=== PATIENT | male | born 1960 | race Caucasian/White ===

== ENCOUNTER 2021-06-29 15:22 | Emergency (ER) | payer OTHER, SELFPAY ==
[2021-06-29] VITALS (11 sets, daily range): BP systolic 135; BP diastolic 78; PULSE 76–102; RESP 16; TEMP 37.1; O2SAT 98
--- NOTE | 2021-06-29 15:30 | RT.EKG_ITS ---
APPROVED REPORT Exam: Resting ECG Reason for Exam: RIB PAIN Patient Location: E HR:91 bpm ECG Measurements Heart Rate 91 AXIS VT 167 P 37 QRSd 84 QRS 58 QT 360 T 66 QTc 443 Conclusion Sinus rhythm...normal P axis, V-rate 60- 99 Probable left atrial enlargement.
--- NOTE | 2021-06-29 15:45 | DI.CT_ITS ---
Exam(s) CT CHEST/ABD/PEL W EXAM: CT CHEST/ABD/PEL W CLINICAL HISTORY: trauma, L pain TECHNIQUE: Imaging Protocol: Axial computed tomography images with coronal and sagittal reformatted images were created and reviewed CONTRAST MATERIAL: Intravenous: Omnipaque 350 Contrast volume:100 mL Oral: No COMPARISON: No exams were available for comparison FINDINGS: CHEST: Tracheobronchial tree: Patent where visualized. Pulmonary parenchyma: No consolidation or dominant measurable mass. No architectural distortion. Mild dependent atelectasis. Visualized thyroid gland: Unremarkable. Mediastinum and Fransisca: No dominant adenopathy or fluid collection. Pleura: No effusion or pneumothorax. Heart: The heart is not dilated. Coronary artery calcification. No pericardial effusion. Aorta: Thoracic aorta non-dilated. Lymph nodes: Within normal limits. Soft tissues: Bilateral gynecomastia. Bones:Sternotomy wires. There is an acute nondisplaced fracture of the lateral aspect of the left 5t h rib. ABDOMEN: Liver: Normal density. No measurable mass. Portal, Superior Mesenteric, and Splenic Veins: Unremarkable. Gallbladder and Biliary Tract: No radiodense calculus or dilation. The gallbladder is contracted. Pancreas: Normal density, no abnormal calcifications or inflammatory process. Spleen: Normal. Adrenals: No masses seen. Kidneys: Normal size, contour and axis. No radiodense stones or obstructive uropathy. There are bilat eral simple renal cysts. No follow-up is recommended. Abdominal Aorta: Abdominal portion non-dilated. Mild atherosclerosis. Bowel: No obstruction or bowel wall thickening. No evidence of appendicitis. Peritoneal Cavity: No ascites, collection or mesenteric inflammatory response. No free air. Lymph Nodes: Within normal limits. Bones: Unremarkable. No acute fracture or subluxation. Soft Tissues: There is a fat containing umbilical hernia. PELVIS: Bladder: Symmetric distention. Mild asymmetric bladder wall thickening anteriorly of uncertain clini linda significance. Reproductive Organs: Unremarkable as visualized. Lymph Nodes: Within normal limits. Bones: Within normal limits. IMPRESSION: 1. No evidence of acute abdominal pelvic organ injury or fracture. 2. Nonspecific mild thickening of the anterior urinary bladder wall. Please correlate clinically. 3. Nondisplaced left 5th rib fracture. 4. No other acute pulmonary process. RADIATION DOSE DELIVERED: 1,660.33mGy.cm Total DLP DATA REPOSITORY: All CT scans at this facility are submitted to the National Radiology Data Registry (NRDR) Dose Index Registry (DIR) with the [employer] (A[employer]). RADIATION OPTIMIZATION: All CT scans at this facility use at least one of these dose optimization te chniques: automated exposure control; mA and/or kV adjustment per patient size (includes targeted exa ms where dose is matched to clinical indication); or iterative reconstruction.
--- NOTE | 2021-06-29 15:56 | ED.GENADUL_ITS ---
Discharge Plan Disposition Patient Disposition: HOME Condition: Improving Discharge Details Clinical Impression: Left rib fracture Primary Care Provider: Unknown,Unknown ED Provider: Shay Welch Home Meds and New Rx's Prescriptions: Continued aspirin 81 mg Capsule 81 mg PO DAILY RF: 0 atorvastatin 40 mg Tablet 40 mg PO DAILY RF: 0 clopidogrel 75 mg Tablet 75 mg PO DAILY RF: 0 lisinopril 2.5 mg Tablet 2.5 mg PO DAILY RF: 0 Discharge Instructions Instructions: Rib Fracture (ED) Additional Instructions: You have a left fifth rib fracture that is not displaced. Use a pillow to splint when coughing or laughing. Make sure you continue to take 10-20 deep breaths per hour as we discussed. Tylenol as needed for pain. Medical Decision Making 61-year-old male presents from [facility] where he has been staying and helping with renovations. On Monday he stepped off approximately 3 foot porch and fell to the ground landing on his left side. He did not have a loss of consciousness, but since that time he has had ongoing left chest and left upper quadrant achy discomfort that is worse with cough and movement. Rest ER in mild pain, afebrile, pulse 102 and oxygenating 98% on room air. He is tender overlying the left anterolateral chest and left quadrant of his abdomen. Differential diagnosis includes contusion versus rib fracture, pneumothorax, visceral injury. Patient IV access established, referred for laboratory testing and CT imaging. Labs are reassuring. CT reveals nondisplaced left fifth rib fracture, no other bony or visceral injury. Patient improved with acetaminophen. Discussed with him outpatient management. He is stable and appropriate for discharge at this time. HPI General Mode of arrival: ambulatory . Date/Time Provider Initiated Documentation: 06/29/21 15:25 . Limitations to Documentation: no limitations . Information obtained by: patient . History of Present Illness 61 year old M presents to the emergency department with the chief complaint of Left-sided pain after fall, described as moderate, Quality is described as dull and constant, and is localized to the chest. Patient reports no radiation. Patient started experiencing this day(s) and it has been constant. Rest improves symptom(s), Movement worsens symptoms . Patient notes denies headaches, shortness of breath and syncope. Patient did receive the following treatments prior to arrival, NSAID Related Data Home Medications Medication Instructions Recorded Confirmed aspirin 81 mg PO DAILY 06/29/21 06/29/21 atorvastatin 40 mg PO DAILY 06/29/21 06/29/21 clopidogrel 75 mg PO DAILY 06/29/21 06/29/21 lisinopril 2.5 mg PO DAILY 06/29/21 06/29/21 Allergies Allergy/AdvReac Type Severity Reaction Status Date / Time No Known Allergies Allergy Unverified 06/29/21 15:35 General Stated Complaint: Chest/Rib BRIANNE: 3 Review of Systems Narrative: Denies other injury. No head/neck/back injury or pain. No significant shortness of breath. 8 systems reviewed and otherwise negative [facility] Social History Smoking/Tobacco Use Status: Current every day Tobacco Type: cigarettes Smoking risk assessment performed?: Yes Alcohol Intake: former Drug use: Rarely Substance use type: marijuana Exam Narrative Exam Narrative: GEN: awake, alert, oriented 3. Pleasant, well groomed, interactive. HEAD: Normocephalic, atraumatic ENT: Mucous membranes moist, oropharynx unremarkable, External ear exam unremarkable EYES: PERRL, EOMI NECK: Full ROM, no CHARMAINE, no menigismus CHEST/RESP: Tender left anterolateral chest approximately T4-T6 region. No crepitus, clear to auscultation bilateral, no wheeze/rhonchi/rales CARDIOVASCULAR: RRR, no murmur, rub zhang. 2+ Rad pulse bilateral ABDOMEN: Soft, minimal left upper quadrant tenderness to palpation without rebound or guarding, no mass. +Bowel sounds EXT: Full ROM, no edema, no rash Neuro: Grossly normal neurologic exam, conversant, interactive. Psych: Speech fluent, thoughts congruent, affect normal Course Vital Signs Vital signs: Vital Signs Temperature 37.1 C 06/29/21 15:29 Pulse 102 H 06/29/21 15:29 Respiratory Rate 16 06/29/21 15:29 Blood Pressure 135/78 06/29/21 15:29 Pulse Oximetry 98 06/29/21 15:29 Temperature 37.1 C 06/29/21 15:29 Temperature Source Skin 06/29/21 15:29 Pulse 102 H 06/29/21 15:29 Respiratory Rate 16 06/29/21 15:29 Respiratory Effort Non-Labored 06/29/21 15:29 Blood Pressure 135/78 06/29/21 15:29 Blood Pressure Position Sitting 06/29/21 15:29 Pulse Oximetry 98 06/29/21 15:29 Oxygen Delivery Method Room Air 06/29/21 15:29 Oxygen Flow Rate 0 06/29/21 15:29 Pain Level 8 06/29/21 15:29 PAWSS Have you Been Recently Intoxicated or Drunk Within the Last 30 days?: No Have you Ever Experienced Previous Episodes of Alcohol Withdrawal?: No Have you ever Experienced Withdrawal Seizures?: No Have you ever Experienced Delirium Tremens(DT)s?: No Have you ever undergone Alcohol Rehabilitation Treatment (i.e, inpt ot outpatient treatment programs)?: No Have you ever Experienced Blackouts?: No Have you ever Combined Alcohol with other Downers within the last 90 days?: No Have you ever Combined Alcohol with any other Substance of Abuse during the last 90 days?: No Positive Blood Alcohol level on Presentation? [PCS.BAL]: No Evidence of Increased Autonomic Activity (i.e. HR>120, tremor, sweating, agitation, nausea)?: No Result: 0
[2021-06-29 16:06] LABS: HCT 42.3 % (40.0-50.0); HGB 14.3 g/dL (13.5-17.5); MCH 33.9 pg (27.0-33.0); MCHC 33.8 % (32.0-36.0); MCV 100.2 fL (80-95); MPV 9.3 fL (8.0-11.0); Platelet Count 254 10^3/uL (130-400); RBC 4.22 10^6/uL (4.36-5.78); RDW 12.5 % (11.8-14.1); RDW-SD 46.9 fL; WBC 8.34 10^3/uL (4.4-10.8)
[2021-06-29] MEDS: ACETAMINOPHEN 1,000 MG/100 ML BTL 400 MG IVPB (16:15)
[2021-06-29] MEDS: Normal Saline Flush 10 ML SYR IVP ×2 (16:15→17:02)
[2021-06-29 16:19] LABS: ALT 33 U/L (16-63); AST 18 U/L (15-37); Albumin 3.5 g/dL (3.4-5.0); Alkaline Phosphatase 87 U/L (46-116); Anion Gap 7.8 mmol/L (3-11); BUN 10 mg/dL (7-18); Bilirubin, Total 0.3 mg/dL (0.2-1.0); CO2 27.2 mmol/L (21.0-32.0); CREATININE 1.1 mg/dL (0.70-1.30); Calcium 8.9 mg/dL (8.5-10.1); Chloride 103 mmol/L (98-107); Glucose 141 mg/dL (74-106); Sodium 138 mmol/L (136-145); Total Protein 7.4 g/dL (6.4-8.2)
[2021-06-29] MEDS: Omnipaque 350 MG/ML 100 ML BTL IV (17:01)
[2021-06-29] MEDS: Normal Saline - Diluent 50 ML VIAL IV (17:02)
--- NOTE | 2021-06-29 17:48 | DI.VRAD_ITS ---
PROCEDURE INFORMATION: Exam: CT Chest With Contrast; Diagnostic Exam date and time: 06/29/2021 3:56 PM Age: 61 years old Clinical indication: Other: Trauma, L pain TECHNIQUE: Imaging protocol: Diagnostic computed tomography of the chest with contrast. 3D rendering (Not supervised by radiologist): MIP and/or 3D reconstructed images were created by the technologist. Radiation optimization: All CT scans at this facility use at least one of these dose optimization techniques: automated exposure control; mA and/or kV adjustment per patient size (includes targeted exams where dose is matched to clinical indication); or iterative reconstruction. Contrast material: OMNIPAQUE 350; Contrast volume: 100 ml; Contrast route: INTRAVENOUS (IV); COMPARISON: No relevant prior studies available. FINDINGS: Lungs: Minimal left lower lobe atelectasis. Pleural spaces: Unremarkable. No pneumothorax. No pleural effusion. Heart: Coronary artery calcifications/stents identified. Aorta: Unremarkable. No aortic aneurysm. Lymph nodes: Unremarkable. No enlarged lymph nodes. Bones/joints: Status post median sternotomy. There is a subtle fracture of the left 5th rib, nondisplaced. This is best appreciated series 8 images 283-299. Soft tissues: There is mild bilateral gynecomastia. IMPRESSION: Nondisplaced left 5th rib fracture. PROCEDURE INFORMATION: Exam: CT Abdomen And Pelvis With Contrast Exam date and time: 06/29/2021 3:56 PM Age: 61 years old Clinical indication: Other: Trauma, L pain TECHNIQUE: Imaging protocol: Computed tomography of the abdomen and pelvis with contrast. 3D rendering (Not supervised by radiologist): MIP and/or 3D reconstructed images were created by the technologist. Radiation optimization: All CT scans at this facility use at least one of these dose optimization techniques: automated exposure control; mA and/or kV adjustment per patient size (includes targeted exams where dose is matched to clinical indication); or iterative reconstruction. Contrast material: OMNIPAQUE 350; Contrast volume: 100 ml; Contrast route: INTRAVENOUS (IV); COMPARISON: No relevant prior studies available. FINDINGS: Liver: Normal. No mass. Gallbladder and bile ducts: Gallbladder contracted. Pancreas: Normal. No ductal dilation. Spleen: Normal. No splenomegaly. Adrenal glands: Normal. No mass. Kidneys and ureters: Bilateral renal cysts. Stomach and bowel: Unremarkable. No obstruction. No mucosal thickening. Appendix: No evidence of appendicitis. Intraperitoneal space: Unremarkable. No free air. No significant fluid collection. Vasculature: Mild atherosclerotic change present in the vasculature. Lymph nodes: Unremarkable. No enlarged lymph nodes. Urinary bladder: There is some mild bladder wall thickening anteriorly allowing for an appropriate degree of distention. Reproductive: Unremarkable as visualized. Bones/joints: There is mild irregularity superior endplate of L3, likely nonacute. Suspect prominent Schmorl's node. No definite fracture seen. Soft tissues: Small, fat containing periumbilical hernia. IMPRESSION: 1. No evidence for acute posttraumatic abnormality. 2. Mild anterior bladder wall thickening, uncertain significance. Dictated and Authenticated by: Fadumo Juarez MD. Ordering:GRABIEL Day MD
== END 2021-06-29 18:02 | disposition home or self-care (01) ==
PROVIDERS: Emergency Provider Emergency Medicine
DX: S22.32XA Fracture of one rib, left side, initial encounter for closed fracture (principal); W13.0XXA Fall from, out of or through balcony, initial encounter
CPT/HCPCS: 36415; 74177; 80053; 85027; 93005; 96365; 99285; 71260; 93010; 99284; J0131; J3490

== ENCOUNTER 2022-07-07 17:31 | Inpatient (IN) | payer MEDICAID, SELFPAY ==
[2022-07-07] VITALS (25 sets, daily range): BP systolic 114–168; BP diastolic 37–144; PULSE 86–106; RESP 8–29; TEMP 36.5–37.6; O2SAT 83–99
[2022-07-07] MEDS: diazePAM 10 MG/2 ML SYR 5 MG IVP (19:20)
[2022-07-07 19:25] LABS: Abs Immature Grans 0.03 10^3/uL (0.0-0.06); Absolute Basophil Count 0.03 10^3/uL (0.0-0.2); Absolute Eosinophil Count 0.13 10^3/uL (0.0-0.7); Absolute Lymphocyte Count 1.52 10^3/uL (1.2-3.4); Absolute Monocyte Count 0.64 10^3/uL (0.1-0.8); Absolute Neutrophil Count 6.84 10^3/uL (1.2-6.7); Basophils % 0.3; Eosinophils % 1.4; HCT 47.4 % (40.0-50.0); HGB 16.3 g/dL (13.5-17.5); Immature Grans % 0.3; Lymphocytes % 16.5; MCH 33.5 pg (27.0-33.0); MCHC 34.4 % (32.0-36.0); MCV 97 fL (80-95); MPV 9.2 fL (8.0-11.0); Neutrophils % 74.5; Platelet Count 266 10^3/uL (130-400); RBC 4.87 10^6/uL (4.36-5.78); RDW 12.8 % (11.8-14.1); WBC 9.19 10^3/uL (4.4-10.8)
[2022-07-07 19:41] LABS: ALT 30 U/L (16-63); AST 21 U/L (15-37); Albumin 3.6 g/dL (3.4-5.0); Alkaline Phosphatase 99 U/L (46-116); Anion Gap 3.9 mmol/L (3-11); BUN 10 mg/dL (7-18); Bilirubin, Total 0.3 mg/dL (0.2-1.0); CO2 29.1 mmol/L (21.0-32.0); CREATININE 1.1 mg/dL (0.70-1.30); Calcium 9.1 mg/dL (8.5-10.1); Chloride 103 mmol/L (98-107); Estimated GFR 76.37 (mL/min/1.73m2); Glucose 134 mg/dL (74-106); Lipase 87 U/L (73-393); Magnesium 2.3 mg/dL (1.8-2.4); Sodium 136 mmol/L (136-145); Total Protein 7.8 g/dL (6.4-8.2)
[2022-07-07] MEDS: diazePAM 10 MG/2 ML SYR IVP ×2 (19:44→20:53)
[2022-07-07] MEDS: diazePAM 10 MG/2 ML SYR (20:13)
[2022-07-07] MEDS: Normal Saline 1,000 ML 1000 ML IV (20:18)
--- NOTE | 2022-07-07 20:33 | ED.GENADUL_ITS ---
Discharge Plan Disposition Patient Disposition: [facility] INPATIENT Condition: Fair Discharge Details Clinical Impression: Alcohol withdrawal Admit Date/Time: 07/07/22 20:23 Admit Provider: Morgan Roy Attending Provider: Morgan Roy Primary Care Provider: Unknown,Unknown ED Provider: Angelique Swartz Discharge Data Discharge Date/Time-TO BE ENTERED AT DEPARTURE: 07/07/22 22:55 Medical Decision Making Patient has a CIWA of 18, secondary to opiate use history, patient was started on Valium and have better effect with Ativan, he received numerous doses for suspected alcohol withdrawal given tachycardia, agitation, and tremulousness Case discussed with Dr. Roy who admit patient for ICU withdrawal symptoms No seizure-like activity or hallucinations noted in the emergency department, maintaining airway Maintained on telemetry monitoring CIWA monitoring Stable electrolytes stable Medical Records Medical records reviewed: Yes I reviewed the patient's medical records. Lab Data Lab results reviewed: Yes I reviewed the patient's lab results. ECG Data Prior ECG tracings: available for review HPI General Date/Time Provider Initiated Documentation: 07/07/22 17:56 . HPI Narrative: This 62-year-old gentleman with history of opiate and alcohol abuse presents with reports of 24 hours of sobriety with tremulousness, myalgia, agitation he drinks approximately 1 pint of vodka daily in addition to 18 beers. He also uses approximately 100 mg of oxycodone daily. He has been searching for a detox in the outpatient setting but has been largely unsuccessful per patient. He denies any auditory or visual hallucinations. He denies any current paresthesias. He has a history of delirium tremens with withdrawal in the past. His last drink was approximately 24 hours prior to arrival. Denies any known falls or injuries. He denies any attempts to harm self. He denies any suicidal or homicidal ideation. He does feel depressed secondary to his illness and addiction per patient. Denies any chest pain, shortness of breath. Related Data Home Medications Medication Instructions Recorded Confirmed amoxicillin 500 mg capsule 1 cap PO TID 07/07/22 07/07/22 Allergies Allergy/AdvReac Type Severity Reaction Status Date / Time No Known Allergies Allergy Unverified 07/07/22 17:41 General Stated Complaint: ETOHWithdr BRIANNE: 3 Review of Systems All systems reviewed & are unremarkable except as noted in HPI and below PFSH All Active Problems (Updated 07/12/22 @ 09:05 by RINKU Hunter) Closed head injury (Acute) Scalp laceration (Acute) Fall (Acute) Delirium (Acute) Agitation (Acute) Alcohol withdrawal (Acute) Left rib fracture (Acute) Medical History (Updated 07/12/22 @ 09:05 by RINKU Hunter) Alcohol abuse Opioid abuse Surgical History (Updated 07/08/22 @ 17:29 by Morgan Roy) Status post cardiac catheterization Social History Smoking/Tobacco Use Status: Current every day Tobacco Type: cigarettes Smoking risk assessment performed?: Yes Alcohol Intake: current Alcohol Intake frequency: 3 or more drinks per day Alcohol type: beer and hard liquor Drug use: Daily Substance use type: marijuana Exam Const General: cooperative and well groomed Orientation: alert, oriented x3 and oriented to place HENMT Head: normal to inspection Mouth: oral mucosae normal Other: No intraoral trauma visualized Eyes Pupils: PERRL Resp Effort & Inspection: normal respiratory effort Auscultation: clear to auscultation bilaterally Cardio Rate: tachycardic Rhythm: regular rhythm GI Inspection: normal to inspection Skin General skin exam: no rashes or lesions noted Neuro General: patient alert and patient oriented x3 Cranial Nerves: CN's II-XI intact bilaterally and tongue midline Other: Tremulous Course Vital Signs Vital signs: Vital Signs Temperature 37.6 C 07/07/22 17:34 Pulse 105 H 07/07/22 17:34 Respiratory Rate 17 07/07/22 17:34 Blood Pressure 139/81 07/07/22 17:34 Pulse Oximetry 98 07/07/22 17:34 Temperature 37.6 C 07/07/22 17:34 Temperature Source Temporal Artery Scan 07/07/22 17:34 Pulse 105 H 07/07/22 17:34 Respiratory Rate 17 07/07/22 17:34 Respiratory Effort Short of Breath 07/07/22 17:39 Respiratory Pattern Normal 07/07/22 19:47 Blood Pressure 139/81 07/07/22 17:34 Blood Pressure Position Sitting 07/07/22 17:34 Pulse Oximetry 98 07/07/22 17:34 Oxygen Delivery Method Room Air 07/07/22 17:34 Oxygen Flow Rate 0 07/07/22 17:34 Pain Level 0 07/07/22 17:34 Lab/Test Results Lab/Test Results: Laboratory Tests Range/Units 07/07/22 07/07/22 19:15 19:15 WBC (4.4-10.8) 10^3/uL 9.19 RBC (4.36-5.78) 10^6/uL 4.87 Hgb (13.5-17.5) g/dL 16.3 Hct (40.0-50.0) % 47.4 MCV (80-95) fL 97 H MCH (27.0-33.0) pg 33.5 H MCHC (32.0-36.0) % 34.4 RDW (11.8-14.1) % 12.8 Plt Count (130-400) 10^3/uL 266 MPV (8.0-11.0) fL 9.2 Immature Gran % 0.3 Neutrophils % 74.5 Lymphocytes % 16.5 Monocytes % 7.0 Eosinophils % 1.4 Basophils % 0.3 Nucleated RBC % (0.0-0.3) % 0.0 Absolute Neutrophils (1.2-6.7) 10^3/uL 6.84 H Absolute Lymphocytes (1.2-3.4) 10^3/uL 1.52 Absolute Monocytes (0.1-0.8) 10^3/uL 0.64 Absolute Eosinophils (0.0-0.7) 10^3/uL 0.13 Absolute Basophils (0.0-0.2) 10^3/uL 0.03 Sodium (136-145) mmol/L 136 Potassium (3.5-5.1) mmol/L 4.0 Chloride (98-107) mmol/L 103 Carbon Dioxide (21.0-32.0) mmol/L 29.1 Anion Gap (3-11) mmol/L 3.9 BUN (7-18) mg/dL 10 Creatinine (0.70-1.30) mg/dL 1.1 Est GFR (CKD-EPI 2020) (mL/min/1.73m2) 76.37 Glucose (74-106) mg/dL 134 H Calcium (8.5-10.1) mg/dL 9.1 Magnesium (1.8-2.4) mg/dL 2.3 Total Bilirubin (0.2-1.0) mg/dL 0.3 AST (15-37) U/L 21 ALT (16-63) U/L 30 Alkaline Phosphatase (46-116) U/L 99 Total Protein (6.4-8.2) g/dL 7.8 Albumin (3.4-5.0) g/dL 3.6 Lipase (73-393) U/L 87 Critical Care Time Critical Care Time Attestation: 45 min secondary to acute alcohol withdrawal, iv benzodiazepines, hourly ciwa monitoringk, and admission to icu PAWSS Have you Been Recently Intoxicated or Drunk Within the Last 30 days?: Yes Have you Ever Experienced Previous Episodes of Alcohol Withdrawal?: Yes Have you ever Experienced Withdrawal Seizures?: Yes Have you ever Experienced Delirium Tremens(DT)s?: Yes Have you ever undergone Alcohol Rehabilitation Treatment (i.e, inpt ot outpatient treatment programs)?: Yes Have you ever Experienced Blackouts?: Yes Have you ever Combined Alcohol with other Downers within the last 90 days?: Yes Have you ever Combined Alcohol with any other Substance of Abuse during the last 90 days?: Yes Result: 8
--- NOTE | 2022-07-07 20:49 | W.PM.HP.N ---
Date of service: 07/07/22 Time of Service: 20:49 Assessment and Plan Assessment and plan (1) Alcohol withdrawal: Start date: 07/07/22 Status: Acute Assessment and plan: This is a 62-year-old gentleman with severe alcohol withdrawal with difficult to control agitation and possible physical harm to patient and staff. He appears to be slowly being controlled with IV benzodiazepines per protocol with IV site variably maintained but still present. He did seem to calm with ketamine which is short acting and continued assessment with use of benzodiazepines with Ativan being used should help with agitation and potential harm to self and others. Patient will be observed with sitter continuously and appears to be protecting his airway well. He will continue close monitoring and will have a sitter until improvement. He is potentially a candidate for intubation and mechanical ventilation with sedation if he reaches a threshold of Ativan use or appears to not be able to protect his airway. He is a full code. Prognosis is poor for patient to do well after this event with poor insight obviously most of his life. It is unclear why he wished to stop drinking at this time. He will need alcohol recovery either inpatient or aggressive outpatient once he is through withdrawals and is medically cleared. Critical care time at least 90 minutes of ICU level of care at patient's bedside and in ICU reviewing patient's response to medical therapy for agitation, reviewing labs and consulting with other providers as to care plan and options for safe sedation for severe agitation. High risk treatment with potential sudden change of respiratory or neurological status and chance of acute decompensation ongoing during critical care time. (2) Delirium: Start date: 07/07/22 Status: Acute Assessment and plan: [facility] protocol with Ativan as above with one-time use of ketamine for severe agitation with patient physically threatening to staff with severe agitation and physically being large enough to do harm to himself or others. We will try to avoid mechanical restraints because of increased chance of harm. Watch airway closely as patient is sedated. Patient should have continuous sitter. (3) Agitation: Start date: 07/07/22 Status: Acute Assessment and plan: Severe with patient potentially doing harm to himself and others with medical management as above. Watch for oversedation. Will avoid phenobarbital since benzodiazepines are being used and because of opioid abuse. (4) Opioid abuse: Assessment and plan: Chronic with patient reportedly taking 100 mg of oxycodone daily along with his heavy alcohol use. Clonidine will be ordered as needed for opioid withdrawal if apparent as patient goes through alcohol withdrawal. (5) Alcohol abuse: Assessment and plan: Chronic with patient drinking since the age of 12 and a heavy drinker daily. He does have a history reported by ED physician of previous alcohol withdrawal and alcohol withdrawal seizures. History of Present Illness History of Present Illness Chief Complaint: Alcohol withdrawal and delirium Narrative: This is a 62-year-old gentleman who recently moved up from another state to live with his aunt who is a retired worker from this hospital. Past medical history was obtained in the ED verbally with no available documentation at the time I saw the patient. The patient was unable to offer history being delirious with his alcohol withdrawal and at the time I saw him he had already had 25+ milligrams of iv Valium and several doses of 3 mg iv Ativan for severe alcohol withdrawal with CIWA scores near or over 20. Because of opioid abuse taking 100 mg of oxycodone daily which he would buy from [facility] to [place], the patient was not initiated on phenobarbital for his aggitation. He was reported to have been drinking a quart of hard liquor and several beers daily since he was age of 12. He came to [place] to live with his aunt and was wanting to stop drinking. He was unable to offer further history and was very agitated attempting to stand becoming very physical pushing staff and was at risk of harming himself. He was on the severe alcohol withdrawal protocol with IV Ativan and because of his severe agitation ketamine was entertained and reviewed as to dosing for severe agitation with delirium. Anesthesia had been called but had not been contacted with review of data indicating the short acting IV use of ketamine may be helpful in this situation. The patient was given continued Ativan dosing and ketamine was given late in the morning before end of shift with good effect and patient sleeping and not being as agitated with a bed sitter at his door. He was very defiant before this and very physical as stated. No further history available for review as stated though it was stated that the patient had previous cardiac catheterization and possible stenting with no records of this procedure available. Patient is a full code. He apparently does smoke tobacco. Patient did have visit to the ED earlier this month with a nondisplaced left rib fracture diagnosed at that time. He Vincentley has been following with his alcohol use. Review of Systems Narrative: 13 point review of systems otherwise unobtainable with patient's delirium. [facility] All Active Problems (Updated 07/08/22 @ 17:29 by Morgan Roy) Closed head injury (Acute) Scalp laceration (Acute) Fall (Acute) Delirium (Acute) Agitation (Acute) Alcohol withdrawal (Acute) Left rib fracture (Acute) Medical History (Updated 07/08/22 @ 17:29 by Morgan Roy) Alcohol abuse Opioid abuse Surgical History (Updated 07/08/22 @ 17:29 by Morgan Roy) Status post cardiac catheterization Social History Smoking/Tobacco Use Status: Current every day Tobacco Type: cigarettes Smoking risk assessment performed?: Yes Alcohol Intake: current Alcohol Intake frequency: 3 or more drinks per day Alcohol type: beer and hard liquor Drug use: Daily Substance use type: marijuana Meds Allergies and Home Medications Allergies Allergy/AdvReac Type Severity Reaction Status Date / Time No Known Allergies Allergy Unverified 07/07/22 17:41 Home Medications Medication Instructions Recorded Confirmed Type amoxicillin 500 mg capsule 1 cap PO TID 07/07/22 07/07/22 History Exam Narrative Exam Narrative: General: Patient appears older than stated age, obese and appears puffy over face and most of body with Dr. Lambert skin, slurred speech and attempting to sit up but very unstable and at times almost falling and when helped pushes back claiming that he is being shoved as if wanting to pick a fight. He is also very muscular. He is not oriented to person or time and not to purpose but may know that he is in the hospital. HEENT: Normocephalic with coarsened facial features, eyes with pupils equal and react light symmetrically, extraocular movement tact and sclera anicteric. There is no nystagmus. Oropharynx with dry mucosa. Neck: Supple without JVD. Back: Stooped posture without CVA tenderness. Lungs: Bronchovesicular breath sounds diffusely with no expiratory wheeze but occasional rhonchi. No focalizing rales. Heart: Tachycardic rate at times with normal rhythm. No appreciable murmur or gallop. Chest: No obvious sternal scar. Abdomen: Obese contour, soft but not cooperating with exam. Bowel sounds positive all quadrants. Genitalia/rectal: Exam deferred. Extremities: Without clubbing, cyanosis or pitting edema with diffuse nonpitting edema over upper and lower extremities. Peripheral pulses intact. Skin: Darkly tanned, warm and dry with thick skin. Rough texture. Neuro: Cranial nerves II through XII appear to be grossly intact without nystagmus. No focal motor deficits but patient very uncoordinated with positive Romberg and repeated attempts to stand and not following direction. He is delirious but not having obvious hallucinations. Psych: Delirious and easily agitated with defiance. No abnormal thought processes other than persistence and his demands for things such as to walk down the hallway to the bathroom or to go to the kitchen indicating that he does not know that he is in the hospital. Memory not testable. Results Labs Result diagrams: 07/07/22 19:15 07/07/22 19:15 Labs: Laboratory Results - last 24 hr 07/07/22 07/07/22 19:15 19:15 WBC 9.19 RBC 4.87 Hgb 16.3 Hct 47.4 MCV 97 H MCH 33.5 H MCHC 34.4 RDW 12.8 Plt Count 266 MPV 9.2 Immature Gran % 0.3 Neutrophils % 74.5 Lymphocytes % 16.5 Monocytes % 7.0 Eosinophils % 1.4 Basophils % 0.3 Nucleated RBC % 0.0 Absolute Neutrophils 6.84 H Absolute Lymphocytes 1.52 Absolute Monocytes 0.64 Absolute Eosinophils 0.13 Absolute Basophils 0.03 Sodium 136 Potassium 4.0 Chloride 103 Carbon Dioxide 29.1 Anion Gap 3.9 BUN 10 Creatinine 1.1 Est GFR (CKD-EPI 2020) 76.37 Glucose 134 H Calcium 9.1 Magnesium 2.3 Total Bilirubin 0.3 AST 21 ALT 30 Alkaline Phosphatase 99 Total Protein 7.8 Albumin 3.6 Lipase 87 Last Vital Signs Temp 37.6 C 07/07/22 17:34 Pulse 97 H 07/07/22 20:32 Resp 8 L 07/07/22 20:40 BP 157/81 H 07/07/22 20:32 Pulse Ox 99 07/07/22 20:40 PAWSS Have you Been Recently Intoxicated or Drunk Within the Last 30 days?: Yes Have you Ever Experienced Previous Episodes of Alcohol Withdrawal?: Yes Have you ever Experienced Withdrawal Seizures?: Yes Have you ever Experienced Delirium Tremens(DT)s?: Yes Have you ever undergone Alcohol Rehabilitation Treatment (i.e, inpt ot outpatient treatment programs)?: Yes Have you ever Experienced Blackouts?: Yes Have you ever Combined Alcohol with other Downers within the last 90 days?: Yes Have you ever Combined Alcohol with any other Substance of Abuse during the last 90 days?: Yes Result: 8
[2022-07-07 21:03] LABS: Source Nasal/Nares
[2022-07-07] MEDS: LORazepam 2 MG/ML VIAL 3 MG IVP (21:13)
[2022-07-07 21:34] LABS: COVID-19 PCR Negative (Negative)
[2022-07-07] MEDS: LORazepam 2 MG/ML VIAL IVP (22:47)
[2022-07-08] VITALS (55 sets, daily range): BP systolic 133–178; BP diastolic 81–116; PULSE 88–106; RESP 10–33; TEMP 36.7–37.5; O2SAT 92–98
--- NOTE | 2022-07-08 | DI.RAD_ITS ---
Exam(s) XR HUMERUS LT EXAM: XR HUMERUS LT CLINICAL HISTORY: fall. TECHNIQUE: 2D digital imaging was performed of the left humerus. Two images were obtained. AP and lateral views were obtained. COMPARISON: No exams were available for comparison FINDINGS: BONES: No acute fracture is present. No bony destructive lesion is seen. Visualized portion of elbow and shoulder joints are unremarkable. SOFT TISSUE: Normal. IMPRESSION: Unremarkable radiographs of the left humerus. DATA REPOSITORY: RADIATION DOSE DELIVERED:
--- NOTE | 2022-07-08 | DI.CT_ITS ---
Exam(s) CT HEAD CERVICAL SPINE WO EXAM: CT HEAD CERVICAL SPINE WO CLINICAL HISTORY: s/p fall. TECHNIQUE: Imaging Protocol: Axial computed tomography images with coronal and sagittal reformatted images were created and reviewed COMPARISON: No exams were available for comparison FINDINGS: CT Head: Ventricles and Extra axial spaces: Normal in size and morphology for the patient's age. Hemorrhage: None. Cerebral parenchyma: Normal. Midline shift: None. Brainstem/Cerebellum: Normal. Calvarium: Normal. Visualized Paranasal sinuses/Mastoids: There is mild mucosal thickening seen in the right maxillary s inus. The remaining visualized paranasal sinuses and mastoid air cells are clear. Soft Tissues: Unremarkable. CT Cervical Spine: Bones: No acute fracture or subluxation. Cervical spondylosis is present. Soft Tissues: Unremarkable. Lung Apices: Clear. IMPRESSION: 1. No acute intracranial process. 2. No acute fracture or subluxation in the cervical spine. RADIATION DOSE DELIVERED: 1,422.26mGy.cm Total DLP DATA REPOSITORY: All CT scans at this facility are submitted to the National Radiology Data Registry (NRDR) Dose Index Registry (DIR) with the [employer] (ACR). RADIATION OPTIMIZATION: All CT scans at this facility use at least one of these dose optimization te chniques: automated exposure control; mA and/or kV adjustment per patient size (includes targeted exa ms where dose is matched to clinical indication); or iterative reconstruction.
[2022-07-08] MEDS: LORazepam 2 MG/ML VIAL IVP ×2 (00:10→02:37)
[2022-07-08 02:36] LABS: Bilirubin Negative (Negative); Blood Negative (Negative); Clarity Clear (Clear); Glucose Negative (Negative); Ketones Negative (Negative); Leukocyte Esterase Negative (Negative); Nitrite Negative (Negative); Urobilinogen 0.2 EU/dL (Up TO 0.2); pH 7.5 (5-8)
[2022-07-08] MEDS: Normal Saline Flush 10 ML SYR IVP (02:38)
[2022-07-08 02:51] LABS: *AMPHETAMINES SCREEN URINE Negative (Negative); *BARBITURATES SCREEN URINE Negative (Negative); *BENZODIAZEPINES SCREEN URINE Positive (Negative); Cannabinoids THC Positive (Negative); Cocaine Screen,Urine Negative (Negative); METHADONE URINE SCREEN Negative (Negative); OPIATES URINE SCREEN Negative (Negative)
[2022-07-08 02:55] LABS: Tricyclic Antidepressants Negative (Negative)
[2022-07-08] MEDS: diazePAM 10 MG/2 ML SYR 5 MG IVP (03:12)
[2022-07-08] MEDS: Ketamine 50 MG/5 ML SYRINGE 100 MG IVP (05:00)
--- NOTE | 2022-07-08 08:46 | W.PULMCC ---
General Date of Service Date of service: 07/08/22 Time of Service: 08:47 Reason for Admission to ICU: EtOH withdrawal Assessment and Plan Assessment and plan (1) Alcohol withdrawal: Status: Acute (2) Agitation: Status: Acute (3) Delirium: Status: Acute (4) Fall: Status: Acute (5) Scalp laceration: Status: Acute Assessment and plan: This is a 62 yo man admitted for alcohol withdrawal on a benzodiazepine treatment pathway. He remained agitated and thought to be actively withdrawing despite receiving significant doses of benzo's so was administered high dose ketamine (100mg). Unfortunately he got out of bed and had a fall this morning, hitting his head on the floor hard enough to cause a right frontal scalp laceration. There was prn ketamine ordered, which is never appropriate and so this was discontinued. He is getting a banana bag until he is able to take PO effectively. Recommendations Pulmonary: No acute concerns Cardiac: No acute concerns Renal: No acute concerns I&O: Intake & Output 07/05/22 07/06/22 07/07/22 07/08/22 23:59 23:59 23:59 23:59 Intake Total 1010 / 1010 Output Total 850 / 850 Balance 1010 / 1010 -840 / -840 Weight 108.2 kg 108.2 kg Daily Fluid Goal:: even GI Nutrition: Nutrition - banana bag while unable to safely take PO Date of Last Bowel Movement: 07/07/22 Infectious Disease: No acute concerns Hematologic: No acute concerns Neurologic: EtOH withdrawal/Agitation - s/p ketamine - discontinue any prn ketamine orders - on benzodiazepine pathway - advise against giving phenobarb since he has received alot of benzo's - on thiamine, folate, MVI - clonidine prn - if needed can consider starting Librium - if agitated/safety concerns, recommend starting Precedex Fall - s/p CT head and C-spine - both are clear and C-collar can be removed - f/u humerus and shoulder xray reads - recommend sitter - recommend bed alarm Endocrine: No acute cocnerns Lines: PIV Prophylaxis: Lovenox Code Status: Resuscitation Status Full Code Subjective Critical and life-threatening events over the past 24 hours: This is a 62 yo man admitted to the ICU for EtOH withdrawal. He was started on the benzodiazepine protocol as he received a significant amount in the ED prior to ICU admission. In total he received 30mg Valium and 11mg Ativan. I am unclear on the situation as the H&P is not completed, but he was also given a total of 100mg Ketamine for agitation. The patient was somnolent after this and difficult to arouse but was protecting airway. He likely experienced re-emergence this morning and got out of bed and subsequently fell, hitting his head on the ground resulting in a scalp laceration. I was near by so responded and held his C-spine stable until a collar could be put on him. Once the collar was in place a backboard was placed under him and he was lifted into a stretcher. He then had a stat head and c-spine CT, both of which were negative. He also had a left shoulder and humurus xray given the fall, read pending but no major fractures that I can see. He was able to open eyes to voice command and hum answers but was refusing to talk. Exam Narrative Exam Narrative: Gen: NAD, normal respiratory effort, obese HENT: PERRL Chest: No respiratory distress, normal appearance of chest, clear to auscultation bilaterally, no crackles or wheezes, normal inspiratory effort Heart: regular rate and rhythym, no murmurs, rubs or gallops Abdomen: Non-distended, soft, non tender Extremities: No clubbing, edema, cyanosis, rashes Neuro: non focal Psych: somnolent Most Recent VS/Results Last Vital Signs Temp 36.5 C 07/07/22 23:15 Pulse 97 H 07/08/22 05:35 Resp 22 07/08/22 06:00 BP 171/90 H 07/08/22 05:35 Pulse Ox 93 07/08/22 00:21 Laboratory Results - last 24 hr 07/07/22 07/07/22 07/07/22 19:15 19:15 21:00 WBC 9.19 RBC 4.87 Hgb 16.3 Hct 47.4 MCV 97 H MCH 33.5 H MCHC 34.4 RDW 12.8 Plt Count 266 MPV 9.2 Immature Gran % 0.3 Neutrophils % 74.5 Lymphocytes % 16.5 Monocytes % 7.0 Eosinophils % 1.4 Basophils % 0.3 Nucleated RBC % 0.0 Absolute Neutrophils 6.84 H Absolute Lymphocytes 1.52 Absolute Monocytes 0.64 Absolute Eosinophils 0.13 Absolute Basophils 0.03 Sodium 136 Potassium 4.0 Chloride 103 Carbon Dioxide 29.1 Anion Gap 3.9 BUN 10 Creatinine 1.1 Est GFR (CKD-EPI 2020) 76.37 Glucose 134 H Calcium 9.1 Magnesium 2.3 Total Bilirubin 0.3 AST 21 ALT 30 Alkaline Phosphatase 99 Total Protein 7.8 Albumin 3.6 Lipase 87 Urine Color Urine Clarity Urine pH Ur Specific [place] Urine Protein Urine Ketones Urine Blood Urine Nitrite Urine Bilirubin Urine Urobilinogen Ur Leukocyte Esterase Urine Glucose Urine Opiates Screen Urine Methadone Screen Ur Barbiturates Screen Ur Tricyclics Screen Ur Amphetamines Screen U Benzodiazepines Scrn Urine Cocaine Screen Ur THC Screen COVID-19 Source Nasal/Nares SARS-CoV-2 (PCR) Negative 07/08/22 07/08/22 02:10 02:10 WBC RBC Hgb Hct MCV MCH MCHC RDW Plt Count MPV Immature Gran % Neutrophils % Lymphocytes % Monocytes % Eosinophils % Basophils % Nucleated RBC % Absolute Neutrophils Absolute Lymphocytes Absolute Monocytes Absolute Eosinophils Absolute Basophils Sodium Potassium Chloride Carbon Dioxide Anion Gap BUN Creatinine Est GFR (CKD-EPI 2020) Glucose Calcium Magnesium Total Bilirubin AST ALT Alkaline Phosphatase Total Protein Albumin Lipase Urine Color Yellow Urine Clarity Clear Urine pH 7.5 Ur Specific [place] 1.020 Urine Protein Negative Urine Ketones Negative Urine Blood Negative Urine Nitrite Negative Urine Bilirubin Negative Urine Urobilinogen 0.2 Ur Leukocyte Esterase Negative Urine Glucose Negative Urine Opiates Screen Negative Urine Methadone Screen Negative Ur Barbiturates Screen Negative Ur Tricyclics Screen Negative Ur Amphetamines Screen Negative U Benzodiazepines Scrn Positive A Urine Cocaine Screen Negative Ur THC Screen Positive A COVID-19 Source SARS-CoV-2 (PCR) Review of Systems Unobtainable due to mental status Time spent with patient Time spent in Critical Care: 50 Time spent in Critical care included: Coordination of care, Chart review, Documenting critically ill care, Time at immediate bedside and Discussing critically ill care with other medical staff
--- NOTE | 2022-07-08 09:16 | DI.RAD_ITS ---
Exam(s) XR SHOULDER LT COMPLETE 2+V EXAM: XR SHOULDER LT COMPLETE 2+V CLINICAL HISTORY: s/p fall. TECHNIQUE: 2D digital imaging was performed of the left shoulder. Five images were obtained. AP, G rashey, Y-view and axillary views were obtained. COMPARISON: No exams were available for comparison FINDINGS: BONES: No acute fracture is present. No bony destructive lesion is seen. JOINTS: No dislocation present. Degenerative changes are seen at the AC joint. SOFT TISSUE: Normal. IMPRESSION: No acute fracture or dislocation. DATA REPOSITORY: RADIATION DOSE DELIVERED:
--- NOTE | 2022-07-08 09:24 | NUR.NOTE ---
At approximately 08:25 patient falls onto the floor after walking out of his room in room 222. Neck collar is applied, MDs are present. Patient lifted onto strecher by 6 people and taken to radiology for CT scan of neck and x-rays of left shoulder and elbow.Nursing Note:
--- NOTE | 2022-07-08 09:26 | NUR.NOTE ---
Patient returns to unit with ASSISTANCE SPECIALIST and CRM FUNCTIONAL ANALYST transporting patient on tele. Patient lethargic but appropriate in his speech. Patient rolls from stretcher to bed on his own and is now a one to one observation patient being observed by CRM FUNCTIONAL ANALYST.Nursing Note:
--- NOTE | 2022-07-08 09:39 | NUR.NOTE ---
At approximately 0825, this play writer was helping a different patient when I heard a loud noise. Patient found on floor with multiple staff members, including MDs, Respiratory therapist there to assist. Staff emergency called at this time. Patient placed in C-spine collar and transferred from floor to stretcher. This play writer and RN Boris Hartman took patient down for CT and Xrays with no complications. Nursing Note:
--- NOTE | 2022-07-08 09:48 | NUR.NOTE ---
Once back from CT and Xray tests, this administrative underwriter is sitting with patient for safety as he can be very restless and confused. C-collar removed at 0940 as he was trying to take it off and radiology reports came back and RN said it was okay to remove. Nursing Note:
--- NOTE | 2022-07-08 09:50 | INITIAL_ITS ---
- If Service Date Differs Date of service: 07/08/22 Time of Service: 09:51 Care Management Initial Assess REASON FOR HOSPITALIZATION:: left rib fracture. alcohol withdrawal PAST MEDICAL HISTORY/PAST SURGICAL HISTORY:: alcohol withdrawal PREVIOUS FUNCTIONAL STATUS/SOCIAL/FAMILY SUPPORTS:: Will lives in [place]. His Aunt Maya Murphy is his next of kin and support person. CURRENT FUNCTIONAL STATUS:: Will was medicated last night for symptoms of withdrawal and was asleep this morning when CM came to meet with him. When he woke up he decided that he wanted to leave AMA. A call was placed to his aunt Maya but she was unable to dissuade him. She offered to come and transport Will home and he was agreeable. ADVANCE DIRECTIVES:: none on file Has patient been provided with info about the portal/API?: Yes Did the patient sign up for the portal?: No CODE STATUS:: Full Code INSURANCE COVERAGE / FINANCIAL ISSUES:: working with Malena Shoshana from [employer] to obtain Medicaid CURRENT HOME/COMMUNITY SERVICES/EQUIPMENT:: none PRIMARY CARE PHYSICIAN:: none currently POTENTIAL DISCHARGE NEEDS:: follow up with assigned PCP and plan of care PATIENT/FAMILY EDUCATION NEEDS:: Review of discharge instructions, follow up plan, limitations, activity, substance use resources, Ask Me Three TRANSPORTATION:: vial private vehicle with family PLAN:: Will was in the ICU being closely monitored and treated for acute alcohol withdrawal. He had been heavily medicated for withdrawal symptoms last night and was sleepy this morning. When he woke up he announced he intended to leave AMA which he did around 2:30 pm. His Aunt Maya provided transport via private vehicle.
[2022-07-08] MEDS: MULTIVITAMIN 10 ML, THIAMINE 100 MG, FOLIC ACID 1 MG in DEXTROSE 5%-0.45% SALINE 1,000 ML 42 ML IV (10:46)
--- NOTE | 2022-07-08 10:53 | NUR.NOTE ---
`Patient lethargic and wakes up to notice pharmacy picking tech trying to draw his blood and is taught why a blood draw is necessary.Nursing Note:
[2022-07-08] MEDS: Enoxaparin 40 MG/0.4 ML SYR SC (10:56)
--- NOTE | 2022-07-08 11:28 | NUR.NOTE ---
Pt voided, confused, in time and space, bed alarm on
--- NOTE | 2022-07-08 12:26 | NUR.NOTE ---
Patient sleeping peacefully.Nursing Note:
--- NOTE | 2022-07-08 12:31 | NUR.NOTE ---
Patient woke briefly asking things like, What meds did you guys give me? What happened here? Why am I here? This casualty underwriter got RN to talk to patient. By the time RN entered room, patient was back to sleep. Nursing Note:
--- NOTE | 2022-07-08 12:52 | NUR.NOTE ---
Patient woke up and was asking things like, Why was my neighbor being a jerk to me yesterday? Did I make a fool out of myself? What happened? Informed patient that I was unaware of events that took place yesterday and let him know of his fall this morning but that nothing was broken and that he had a small cut on his forehead. At this time, patient is requesting food. Patient currently has an NPO order per MD. This automobile and property underwriter called MD to let her know about these events and patients request for food. MD said she would change diet order to clear liquids RN also notified that he is back. Nursing Note:
--- NOTE | 2022-07-08 13:25 | NUR.NOTE ---
Patient much more awake and aware of his surroundings. Tried to ask the patient if he knew where he was. His response was, Same one I was in yesterday. When asked if he knew what year it is he responded with, Yeah yeah yeah I know that bull shit you don't have to ask me that. Patient requesting to speak with MD, so MD was text paged. Nursing Note:
--- NOTE | 2022-07-08 13:52 | NUR.NOTE ---
Patient getting agitated and taking off wires and blood pressure cuff. States, Im fucking leaving. RN and MD notified. Nursing Note:
--- NOTE | 2022-07-08 14:06 | NUTRITION ---
Maya Murphy (Patients Aunt)
--- NOTE | 2022-07-08 14:26 | NUR.NOTE ---
RN calls patient's aunt to come to hospital to collect patient who is going to sign himself out of the hospital AMA. IV is dc'd by RN. Gauze applied to old IV site with tape securing same.Nursing Note:
--- NOTE | 2022-07-08 14:31 | NUR.NOTE ---
Patient signs himself out AMA. Patient placed in wheelchair and is taken to lobby where he will wait for his aunt to collect him in 30 minutes. RN confirms same after speaking with aunt telephonically. STEEL FINISHER will remain with patient in lobby for safety.Nursing Note:
--- NOTE | 2022-07-08 14:32 | W.PM.DS.N ---
Date of service: 07/08/22 Time of Service: 14:32 DS: Diagnosis Discharge Diagnosis (1) Alcohol withdrawal: Status: Acute (2) Agitation: Status: Acute (3) Delirium: Status: Acute (4) Fall: Status: Acute (5) Scalp laceration: Status: Acute (6) Closed head injury: Status: Acute (7) Alcohol abuse: Discharge Plan Disposition Patient Disposition: AGAINST MEDICAL ADVICE Condition: Fair Discharge Details Reason For Visit: Alcohol Withdrawel Admit Date/Time: 07/07/22 20:23 Admit Provider: Morgan Roy Attending Provider: Morgan Roy Primary Care Provider: Unknown,Unknown Hospital Course Hospital Course: Mr Murphy is a 62 year old male with PMHx of CAD, EtOH abuse, and opioid dependence on oxycodone who was a patient in [facility] ICU under the hospitalist service from 07/07/22 until 07/08/22 for alcohol withdrawal accompanied by agitation. The patient ended up receiving diazepam and ativan in the ED followed by ketamine for his agitation. These measures did help relieve his symptoms. However, he sustained an unwitnessed fall on the morning of 07/08/22 without loss of consciousness. He fell face forward lacerating his scalp on the right and not requiring sutures. Staff emergency was called. Vital signs were stable. He had a negative CT head and c-spine. He rested during the morning, not requiring respiratory support, and woke up by the afternoon, tolerating a clear liquid diet and demonstrating ability to mentate, consistently requesting to leave the hospital, even if it were AMA. He verbalized understanding of the possible complications of undertreated alcohol withdrawal including but not limited to seizures and and chose to leave AMA regardless. No new prescriptions were given. Care for patient as well as completion of his discharge summary on day the patient left AMA took 45 minutes. Home Meds and New Rx's Prescriptions: No Action amoxicillin 500 mg capsule 1 cap PO TID Discharge Instructions Instructions: Alcohol Withdrawal (DC) Additional Instructions: You should return to the hospital with any worsening of your alcohol withdrawal symptoms. Referrals: Unknown,Unknown [Primary Care Provider] - Activity:: Activity as Tolerated Equipment/Supplies:: No Equipment Needed Diet:: As Tolerated Discharge Orders Discharge Orders: Discharge Order (Routine); Ordered 07/08/22 Ordered By: Penny A Juanita Discharge Data Discharge Date/Time-TO BE ENTERED AT DEPARTURE: 07/08/22 14:37 Discharge Comment: Patient signed out AMA. Aunt to collect patient. DS: Summary Time Spent with Patient providing and/or coordinating discharge services: Greater than 30 minutes Status at Discharge Functional status at discharge: independent ambulation Overall status at discharge: patient is not back to baseline Mental Status: other Speech and Movement: speech and movement normal Mood: anxious mood and other Affect: anxious affect Exam Narrative Exam Narrative: General: Obese male who is awake and requesting to leave AMA HEENT: EOMI, MMM Heart: RRR, no m/r/g Lungs: CTAB/nonlabored breathing Abdomen: soft, nontender, nondistended Extremities: no edema BLEs Psych Mental Status: other Speech and Movement: speech and movement normal Mood: anxious mood and other Affect: anxious affect DS: Data Vitals/I&O Vitals and I&O: Vital Signs Temperature 37.5 C 07/08/22 12:16 Temperature Source Temporal Artery Scan 07/08/22 12:16 Pulse 101 H 07/08/22 12:16 Pulse 99 H 07/08/22 11:22 Respiratory Rate 27 H 07/08/22 12:16 Respiratory Effort 07/08/22 12:16 Respiratory Depth Normal 07/08/22 12:16 Respiratory Pattern Normal 07/08/22 12:16 Blood Pressure 135/84 07/08/22 12:16 Blood Pressure Mean 101 07/08/22 12:16 Blood Pressure Position Right Lateral 07/08/22 12:16 Pulse Oximetry 93 07/08/22 12:16 Oxygen Delivery Method Room Air 07/08/22 12:16 Oxygen Flow Rate 0 07/08/22 12:16 Pain Level 2 07/08/22 12:16 Intake & Output 07/07/22 07/08/22 07/08/22 23:59 11:59 23:59 Intake Total 1010 / 1010 10 / 310 300 / 310 Output Total 1250 / 1250 Balance 1010 / 1010 -1240 / -940 300 / -940 Weight 108.2 kg 108.2 kg Intake: IV 1010 / 1010 10 / 10 Oral 300 / 300 Output: Urine 1250 / 1250 Other: Urine Color Yellow Urine Appearance Clear Urine Odor Normal Voiding Methods Urinal Data Completed and Pending Completed studies during hospitalization [Text1]: CT head/c-spine w/o contrast: 1. No acute intracranial process.? 2. No acute fracture or subluxation in the cervical spine. XR L humerus: Unremarkable radiographs of the left humerus. XR L shoulder: No acute fracture or dislocation.? Labs on day of discharge: Labs from last 24 hours 07/08/22 07/08/22 07/08/22 05:35 02:10 02:10 WBC RBC Hgb Hct MCV MCH MCHC RDW Plt Count MPV Immature Gran % Neutrophils % Lymphocytes % Monocytes % Eosinophils % Basophils % Nucleated RBC % Absolute Neutrophils Absolute Lymphocytes Absolute Monocytes Absolute Eosinophils Absolute Basophils PT INR Sodium Pending Potassium Pending Chloride Pending Carbon Dioxide Pending Anion Gap Pending BUN Pending Creatinine Pending Est GFR (CKD-EPI 2020) Pending Glucose Pending Calcium Pending Phosphorus Pending Magnesium Pending Total Bilirubin Pending Conjugated Bilirubin Pending AST Pending ALT Pending Alkaline Phosphatase Pending Total Protein Pending Albumin Pending Lipase Urine Color Yellow Urine Clarity Clear Urine pH 7.5 Ur Specific [place] 1.020 Urine Protein Negative Urine Ketones Negative Urine Blood Negative Urine Nitrite Negative Urine Bilirubin Negative Urine Urobilinogen 0.2 Ur Leukocyte Esterase Negative Urine Glucose Negative Urine Opiates Screen Negative Urine Methadone Screen Negative Ur Barbiturates Screen Negative Ur Tricyclics Screen Negative Ur Amphetamines Screen Negative U Benzodiazepines Scrn Positive A Urine Cocaine Screen Negative Ur THC Screen Positive A COVID-19 Source SARS-CoV-2 (PCR) 07/07/22 07/07/22 07/07/22 21:00 20:47 19:15 WBC 9.19 RBC 4.87 Hgb 16.3 Hct 47.4 MCV 97 H MCH 33.5 H MCHC 34.4 RDW 12.8 Plt Count 266 MPV 9.2 Immature Gran % 0.3 Neutrophils % 74.5 Lymphocytes % 16.5 Monocytes % 7.0 Eosinophils % 1.4 Basophils % 0.3 Nucleated RBC % 0.0 Absolute Neutrophils 6.84 H Absolute Lymphocytes 1.52 Absolute Monocytes 0.64 Absolute Eosinophils 0.13 Absolute Basophils 0.03 PT Pending INR Pending Sodium Potassium Chloride Carbon Dioxide Anion Gap BUN Creatinine Est GFR (CKD-EPI 2020) Glucose Calcium Phosphorus Magnesium Total Bilirubin Conjugated Bilirubin AST ALT Alkaline Phosphatase Total Protein Albumin Lipase Urine Color Urine Clarity Urine pH Ur Specific [place] Urine Protein Urine Ketones Urine Blood Urine Nitrite Urine Bilirubin Urine Urobilinogen Ur Leukocyte Esterase Urine Glucose Urine Opiates Screen Urine Methadone Screen Ur Barbiturates Screen Ur Tricyclics Screen Ur Amphetamines Screen U Benzodiazepines Scrn Urine Cocaine Screen Ur THC Screen COVID-19 Source Nasal/Nares SARS-CoV-2 (PCR) Negative 07/07/22 19:15 WBC RBC Hgb Hct MCV MCH MCHC RDW Plt Count MPV Immature Gran % Neutrophils % Lymphocytes % Monocytes % Eosinophils % Basophils % Nucleated RBC % Absolute Neutrophils Absolute Lymphocytes Absolute Monocytes Absolute Eosinophils Absolute Basophils PT INR Sodium 136 Potassium 4.0 Chloride 103 Carbon Dioxide 29.1 Anion Gap 3.9 BUN 10 Creatinine 1.1 Est GFR (CKD-EPI 2020) 76.37 Glucose 134 H Calcium 9.1 Phosphorus Magnesium 2.3 Total Bilirubin 0.3 Conjugated Bilirubin AST 21 ALT 30 Alkaline Phosphatase 99 Total Protein 7.8 Albumin 3.6 Lipase 87 Urine Color Urine Clarity Urine pH Ur Specific [place] Urine Protein Urine Ketones Urine Blood Urine Nitrite Urine Bilirubin Urine Urobilinogen Ur Leukocyte Esterase Urine Glucose Urine Opiates Screen Urine Methadone Screen Ur Barbiturates Screen Ur Tricyclics Screen Ur Amphetamines Screen U Benzodiazepines Scrn Urine Cocaine Screen Ur THC Screen COVID-19 Source SARS-CoV-2 (PCR) PFSH All Active Problems Closed head injury (Acute) Scalp laceration (Acute) Fall (Acute) Delirium (Acute) Agitation (Acute) Alcohol withdrawal (Acute) Left rib fracture (Acute) Medical History Alcohol abuse Social History Smoking/Tobacco Use Status: Current every day Tobacco Type: cigarettes Smoking risk assessment performed?: Yes Alcohol Intake: current Alcohol Intake frequency: 3 or more drinks per day Alcohol type: beer and hard liquor Drug use: Daily Substance use type: marijuana
--- NOTE | 2022-07-09 09:10 | NUR.NOTE ---
Nursing Note: 07/07/22- 23:00-Received patient from ER brought by stretcher escorted by Carlos BAEZA. Unsteady gait, drowsy, garbled, re-directed to commands, agitated moderately. 23:20-Patient wanted to eat crackers inspite of informing him that he is drowsy and might choke if he cannot swallow smoothly. Patient was agitated that he cannot eat, pt shouted for crackers and went back to bed. 23:50-Patient wanted to smoke, informed him that he is in the hospital and is not allowed to smoke in the ICU for safety reasons.Pt jumped out of bed, unsteady gait, potential risk to fall, resistive to re-direction, combative, called security, informed Global Logistics Analyst for sitter.Security staff Jocelynn in the unit, spoke with patient and patient was put down to bed with 4 people. 00:10-Inj.Lorazepam 3mg IVP given and flushed with 10ml saline, CIWA-18 00:25- Pulled out all secured entrance monitor leads, BP cuff and spo2 probe. Trying to pull out the RAC-18G, wrapped RAC IV line with kerlex. Patient drowsy, garbled speech in sleep, on room air. 00:30- TECHNICAL SUPPORT CONSULTANT Cecile PHILLIPS came as sitter.Patient in bed, agitated, trying to jump OOB with both legs over the side rails. Patient's head placed in between the padded side rails. Repositioned patient to supine position with assistance. 01:45-pulled out RAC-18G IV line, sitter TECHNICAL SUPPORT CONSULTANT informed this RN. IV removal site inspected, cleaned and taped. After many frequent attempts by 2 RNs,initiated another IV line rt. wrist -20G. Wrapped with kerlex. Patient suddenly shakes his upper amd lower extremities, resistive to care. 02:30-Dr Roy in unit, with patient in room. 02:37-CIWA-24, restless and aggressive behaviour to people around him. Frequently trying to come OOB. Inj. Lorazepam 4mg slow IVP given with saline flush, informed Dr Roy. Security called, Jocelynn arrived at scene. Patient wanted to walk and comes OOB often. 02:30- second security James on scene. 02:56-Patient given Inj Diazepam 5mg IVP, in the unit. Patient calm and resting at this time. 03:30- MD wanted to give Inj. Ketamine dose, this RN along with another RN on the shift inform MD to check with pharmacist and re-check with anesthesia or ER physician. After discussion over the phone by MD, he ordered Inj Ketamine 100mg IVP. 04:10- re-applied monitor leads HR-98, but pt immediately pulled out monitor leads. Pre-ketamine vitals was not taken as patient was aggressive. 05:00- medication Ketamine 100mg was administered after medication being verified by pharmacist. Medication brought by Vijay BAEZA nursig recycling crew supervisor as a vial 500mg/5ml, withdrew 100mg/1ml from vial and given, medication cannot be scanned and was hard documented, given in witness with nursing recycling crew supervisor and Dr Roy in the unit. Patient took few minutes to calm and relaxed, sitter at bedside. 05:30- vitals taken HR-102, BP-171/90(108),RR-25,SPO2-95% room air. Patient was continuously monitored closely. Patient asleep, on room air. 06:15- In between patient repositioning himself in bed, sitter at bedside. Patient stays relaxed. Handed over to Uche at 07:00
== END 2022-07-08 14:37 | disposition left against medical advice (07) | DRG 894 ==
LOC: ER 21:07 → ICU 22:57
PROVIDERS: Admitting Provider Family Medicine; Emergency Provider Physician Assistant; Visit Provider Family Medicine
DX: F10.131 Alcohol abuse with withdrawal delirium (principal); R45.1 Restlessness and agitation; F11.10 Opioid abuse, uncomplicated; S01.01XA Laceration without foreign body of scalp, initial encounter; W19.XXXA Unspecified fall, initial encounter; F17.210 Nicotine dependence, cigarettes, uncomplicated; F12.90 Cannabis use, unspecified, uncomplicated; I25.10 Atherosclerotic heart disease of native coronary artery without angina pectoris
CPT/HCPCS: 80048; 80053; 80076; 80307; 83690; 87635; 96361; 96374; 96375; 99291; J1650; 70450; 72125; 73030; 73060; 81003; 83735; 84100; 85025; 85610; 99223; 99239; J2060; J3360

== ENCOUNTER 2022-09-30 15:52 | Outpatient (REF) | payer MEDICAID, SELFPAY ==
[2022-09-30 15:12] LABS: Abs Immature Grans 0.02 10^3/uL (0.0-0.06); Absolute Basophil Count 0.04 10^3/uL (0.0-0.2); Absolute Eosinophil Count 0.14 10^3/uL (0.0-0.7); Absolute Lymphocyte Count 1.36 10^3/uL (1.2-3.4); Absolute Monocyte Count 0.49 10^3/uL (0.1-0.8); Absolute Neutrophil Count 4.71 10^3/uL (1.2-6.7); Basophils % 0.6; Eosinophils % 2.1; HCT 44.1 % (40.0-50.0); Immature Grans % 0.3; Lymphocytes % 20.1; MCH 33.6 pg (27.0-33.0); MCV 99 fL (80-95); MPV 10.1 fL (8.0-11.0); Monocytes % 7.2; Neutrophils % 69.7; Platelet Count 265 10^3/uL (130-400); RBC 4.47 10^6/uL (4.36-5.78); RDW 13.2 % (11.8-14.1); WBC 6.76 10^3/uL (4.4-10.8)
[2022-09-30 15:35] LABS: Hemoglobin A1C 6.3 % (<5.7)
[2022-09-30 15:48] LABS: ALT 31 U/L (16-63); AST 26 U/L (15-37); Albumin 3.9 g/dL (3.4-5.0); Alkaline Phosphatase 91 U/L (46-116); Anion Gap 7.2 mmol/L (3-11); BUN 9 mg/dL (7-18); Bilirubin, Total 0.3 mg/dL (0.2-1.0); CO2 28.8 mmol/L (21.0-32.0); CREATININE 0.9 mg/dL (0.70-1.30); Calcium 9.1 mg/dL (8.5-10.1); Calculated LDL 147 mg/dL (<100); Chloride 101 mmol/L (98-107); Cholesterol 224 mg/dL (<200); Estimated GFR 97.17 (mL/min/1.73m2); Glucose 128 mg/dL (74-106); HDL Cholesterol 44 mg/dL (40-60); Potassium 4.4 mmol/L (3.5-5.1); Sodium 137 mmol/L (136-145); Total Protein 7.3 g/dL (6.4-8.2); Triglyceride 167 mg/dL (<150)
== END 2022-09-30 15:53 | disposition home or self-care (01) ==
LOC: NCHCN 15:52
PROVIDERS: Visit Provider Nurse Practitioner Family
DX: I51.9 Heart disease, unspecified (principal); E66.8 Other obesity; R73.09 Other abnormal glucose
CPT/HCPCS: 80053; 80061; 83036; 85025

== ENCOUNTER 2022-10-05 01:27 | Outpatient (CLI) | payer MEDICAID, SELFPAY ==
--- NOTE | 2022-10-05 | DI.RAD_ITS ---
Exam(s) RF BARIUM SWALLOW EXAM: RF BARIUM SWALLOW CLINICAL HISTORY: DYSPHAGIA, R13.10, GERD, K21.9, SUBSTANCE ABUSE, F19.10 TECHNIQUE: 2D and realtime digital imaging was performed. CONTRAST MATERIAL: Thick and thin barium and barium tablet were administered. COMPARISON: No exams were available for comparison FINDINGS: The PA and lateral chest statistical consultant show normal heart size and clear lung hansen. Sternal wires and media stinal clips are noted. Esophagus: The patient swallowed barium without difficulty. Noevidence for mucosal erosions. Nofold thickening. No mass is visible. Nostricture. Motility: There is a normal primary stripping wave. Transient mild tertiary contractions were noted. There is no hiatal hernia. Mild gastroesophageal reflux was observed during the exam. IMPRESSION: Mild gastroesophageal reflux. Mild tertiary contractions. RADIATION DOSE DELIVERED: ashleigh Wu=50.9 mGy
--- NOTE | 2022-10-05 | DI.CTLCSR_ITS ---
Exam(s) CT CHEST LUNG CANCER SCREEN EXAM: CT CHEST LUNG CANCER SCREEN CLINICAL HISTORY: CURRENT SMOKER, F17.200, LUNG CA SCREENING, EXERTIONAL SOB, R06.09 TECHNIQUE: Imaging Protocol: Axial computed tomography images with coronal and sagittal reformatted images were created and reviewed. Low dose screening protocol. COMPARISON: CT CT CHEST/ABD/PEL W from 06/29/2021 CR,RF RF BARIUM SWALLOW from 10/05/2022 FINDINGS: Tracheobronchial tree: No bronchiectasis or mucus plugging.. Mediastinum and Fransisca: No dominant adenopathy or fluid collection. Pulmonary parenchyma: No consolidation no change in area of scarring in lateral left upper lobe. Mil d emphysematous changes. Lung Nodules: Few scattered tiny pulmonary nodules are seen, less than 3 millimeters in size. Pleura: No effusion. No pneumothorax. Heart: The heart is not dilated. Severe coronary artery calcifications are seen. Prior CABG and cor onary artery stents. Aorta: Thoracic aorta non-dilated. Upper abdomen: Unremarkable. Bones: Sternal wires. Changes in the spine. Soft Tissues: Mild bilateral gynecomastia. IMPRESSION: No suspicious pulmonary nodules. Stable area of scarring in the left upper lobe. Category Lung RADS Cat 2 - Benign Appearance / Behavior: Nodules with a very low likelihood of becomi ng a clinically active cancer due to size or lack of growth Lung-RADS 1.0 CATEGORIES: Category 0 - Prior chest CT exam(s) being located for comparison. Category 1 - Annual screening in 12 months. No nodules or definitely benign nodules. Category 2 - Annual screening in 12 months. Benign appearance. Nodules with low likelihood of becomin g active cancer. Category 3 - 6-month follow-up. Probably benign. Short-term follow-up suggested. Nodules with low lik elihood of becoming active cancer. Category 4A - 3-month follow-up and CT/PET if >8 mm in size. Suspicious finding. Findings which requi re additional testing. Category 4B - Findings which require additional testing and tissue sampling. Category 4X - Category 3 or 4 nodules with additional features or imaging findings that increases the suspicion of malignancy. Modifier S- Potentially clinically significant findings (non lung cancer) RADIATION DOSE DELIVERED: 91.08mGy.cm Total DLP DATA REPOSITORY: All CT scans at this facility are submitted to the National Radiology Data Registry (NRDR) Dose Index Registry (DIR) with the [employer] (A[employer]). RADIATION OPTIMIZATION: All CT scans at this facility use at least one of these dose optimization te chniques: automated exposure control; mA and/or kV adjustment per patient size (includes targeted exa ms where dose is matched to clinical indication); or iterative reconstruction.
[2022-10-05] MEDS: Barium Sulfate 98% W/W 140 ML BTL PO (09:27)
[2022-10-05] MEDS: Barium Sulfate 60% W/V 355 ML BTL 55 ML PO (09:29)
[2022-10-05] MEDS: Barium Sulfate 700 MG TAB PO (09:31)
[2022-10-05] MEDS: Simethicone/Sod Bicarb/Cit Ac, 4 gram PACKET 1 PACKET PO (09:32)
== END 2022-10-05 01:47 ==
LOC: DI 01:27
PROVIDERS: Visit Provider Nurse Practitioner Family
DX: Z12.2 Encounter for screening for malignant neoplasm of respiratory organs (principal); F17.210 Nicotine dependence, cigarettes, uncomplicated; R06.02 Shortness of breath; R91.8 Other nonspecific abnormal finding of lung field; J98.4 Other disorders of lung; R13.10 Dysphagia, unspecified; K21.9 Gastro-esophageal reflux disease without esophagitis; F19.10 Other psychoactive substance abuse, uncomplicated; K22.4 Dyskinesia of esophagus
CPT/HCPCS: 71271; 74221; J3490

== ENCOUNTER 2022-10-16 13:40 | Emergency (ER) | payer MEDICAID, SELFPAY ==
[2022-10-16 13:43] VITALS: BP 121/70; PULSE 85; RESP 18; TEMP 36.6; O2SAT 94
--- NOTE | 2022-10-16 14:15 | DI.RAD_ITS ---
Exam(s) XR FOOT RT COMPLETE EXAM: XR FOOT RT COMPLETE CLINICAL HISTORY: stepped on fb, swelling pain mid dorsum of foot. TECHNIQUE: 2D digital imaging was performed of the right foot. Three images were obtained. AP, obl ique and lateral views were obtained. COMPARISON: No exams were available for comparison FINDINGS: BONES: No acute fracture is present. No bony destructive lesion is seen. There is a tiny plantar calc aneal spur. JOINTS: No dislocation present. SOFT TISSUE: Normal. No radiopaque foreign body is identified. IMPRESSION: Unremarkable radiographs of the right foot. No radiopaque foreign body. DATA REPOSITORY: RADIATION DOSE DELIVERED:
--- NOTE | 2022-10-16 15:07 | DI.VRAD_ITS ---
PROCEDURE INFORMATION: Exam: XR Right Foot Exam date and time: 10/16/2022 2:45 PM Age: 62 years old Clinical indication: Pain; Heel; Right; Additional info: Stepped on sharp object TECHNIQUE: Imaging protocol: Radiologic exam of the Right foot. Views: 3 or more views. COMPARISON: No relevant prior studies available. FINDINGS: Bones/joints: Normal. Soft tissues: Normal. IMPRESSION: No acute abnormality. Dictated and Authenticated by: Fadumo Juarez MD. Ordering:SAUNDRA Merino MD
[2022-10-16 15:22] VITALS: BP 131/57; PULSE 81; RESP 18; O2SAT 95
--- NOTE | 2022-10-19 10:18 | ED.GENADUL_ITS ---
Discharge Plan Disposition Patient Disposition: Home Condition: Stable Discharge Details Clinical Impression: Cellulitis Primary Care Provider: JHONATAN TSAI ED Provider: Angelique Swartz Home Meds and New Rx's Prescriptions: Continued aspirin 81 mg tablet,delayed release (DR/EC) 81 mg PO DAILY cholecalciferol (vitamin D3) 250 mcg (10,000 unit) capsule 250 mcg PO DAILY vitamin G99-unwcg acid 2,500-400 mcg tablet,disintegrating PO potassium citrate 99 mg capsule PO pantoprazole [Protonix] 40 mg tablet,delayed release (DR/EC) 40 mg PO DAILY Qty: 60 0RF methadone [Methadone Intensol] 10 mg/mL concentrate 80 mg PO DAILY polyethylene glycol 3350 17 gram/dose powder 238 g PO ONCE Qty: 238 0RF Rx Instructions: take per colonoscopy instructions bisacodyl [Dulcolax (bisacodyl)] 5 mg tablet,delayed release (DR/EC) 5 mg PO ONCE Qty: 4 0RF Rx Instructions: take per colonoscopy instructions albuterol sulfate 90 mcg/actuation HFA aerosol inhaler 2 puff inhalation Q6H PRN rosuvastatin 10 mg tablet 10 mg PO DAILY metformin 500 mg tablet extended release 24 hr 500 mg PO DAILY Discharge Instructions Instructions: Cellulitis (ED) Additional Instructions: Take antibiotics as prescribed Elevate your foot is much as possible Please return for spreading redness, fever, worsening pain Referrals: JHONATAN TSAI [Primary Care Provider] - Discharge Data Discharge Date/Time-TO BE ENTERED AT DEPARTURE: 10/16/22 15:28 Medical Decision Making 62 patient presents with injury to left foot, placed on Keflex, nail did not puncture through a soled shoe No lymphangitis Afebrile and nontoxic Recommended cast shoe, patient has declined Will elevate and stay off as much as possible Recheck in 48 hours recommended Return precautions reviewed and patient expressed understanding X-ray without evidence of acute abnormality per radiology interpretation my review Medical Records Medical records reviewed: Yes I reviewed the patient's medical records. HPI General Date/Time Provider Initiated Documentation: 10/16/22 13:49 . HPI Narrative: This 62-year-old male presents with report of injury to right foot after stepping on something painful in the middle of the night. He was not wearing a shoe. He states that it is now swollen and red. Denies any history of diabetes. Pain exacerbated with walking. Denies fever or chills Related Data Home Medications Medication Instructions Recorded Confirmed albuterol sulfate 90 mcg/actuation 2 puff inhalation Q6H PRN 10/13/22 10/16/22 aerosol inhaler metformin 500 mg tablet,extended 500 mg PO DAILY 10/13/22 10/16/22 release 24 hr rosuvastatin 10 mg tablet 10 mg PO DAILY 10/13/22 10/16/22 aspirin 81 mg tablet,delayed 81 mg PO DAILY 10/14/22 10/16/22 release bisacodyl 5 mg tablet,delayed 5 mg PO ONCE colonscopy bowel prep 10/14/22 10/16/22 release (Dulcolax (bisacodyl)) #4 tabs cholecalciferol (vitamin D3) 250 250 mcg PO DAILY 10/14/22 10/16/22 mcg (10,000 unit) capsule methadone 10 mg/mL oral 80 mg PO DAILY 10/14/22 10/16/22 concentrate (Methadone Intensol) pantoprazole 40 mg tablet,delayed 40 mg PO DAILY #60 tabs 10/14/22 10/16/22 release (Protonix) polyethylene glycol 3350 17 238 g PO ONCE colonoscopy prep 10/14/22 10/16/22 gram/dose oral powder #238 grams potassium citrate 99 mg capsule mg PO 10/14/22 10/14/22 vitamin B12 2,500 mcg-folic acid tab PO 10/14/22 10/14/22 400 mcg disintegrating tablet Previous Rx's Medication Instructions Recorded bisacodyl 5 mg tablet,delayed 5 mg PO ONCE colonscopy bowel prep 10/14/22 release (Dulcolax (bisacodyl)) #4 tabs pantoprazole 40 mg tablet,delayed 40 mg PO DAILY #60 tabs 10/14/22 release (Protonix) polyethylene glycol 3350 17 238 g PO ONCE colonoscopy prep 10/14/22 gram/dose oral powder #238 grams Allergies Allergy/AdvReac Type Severity Reaction Status Date / Time No Known Allergies Allergy Unverified 10/16/22 13:47 General Stated Complaint: Cellulitis BRIANNE: 3 PFSH All Active Problems (Updated 10/16/22 @ 20:01 by Cuca Zamudio DO) Drug induced constipation (Acute) Chronic GERD (Acute) Continuous cannabis use (Acute) Cellulitis (Acute) COPD (chronic obstructive pulmonary disease) (Chronic) History of TIA (transient ischemic attack) (Acute) Heart disease (Acute) Colonic polyp (Acute) Anxiety and depression (Chronic) Cocaine abuse in remission (Acute) Alcohol abuse, in remission (Acute) Change in voice (Acute) Coronary artery calcification seen on CAT scan (Acute) Chronic maxillary sinusitis (Acute) Dysphagia (Acute) Breathing problem (Acute) S/P CABG (coronary artery bypass graft) (Acute) Hx of heart artery stent (Chronic) Umbilical hernia (Acute) GERD (gastroesophageal reflux disease) (Chronic) Constipation, chronic (Acute) from methadone Exertional shortness of breath (Acute) Smoker (Acute) Obesity (Chronic) Left rib fracture (Acute) Medical History (Updated 10/16/22 @ 20:01 by Cuca Zamudio DO) Agitation Alcohol abuse Alcohol abuse, continuous drinking behavior Alcohol withdrawal Arthritis Closed head injury Cocaine abuse Delirium Dysphasia Fall Hx of fracture of pelvis Marijuana use Opioid abuse Scalp laceration Substance abuse Surgical History (Updated 10/16/22 @ 19:52 by Cuca Zamudio DO) Hx of coronary artery bypass graft Status post cardiac catheterization Social History Smoking/Tobacco Use Status: Current every day Tobacco Type: cigarettes Smoking risk assessment performed?: Yes Alcohol Intake: current Alcohol Intake frequency: a few times a month Alcohol type: beer and hard liquor Drug use: Occasionally Substance use type: marijuana Details: methadone Current gender identity: male Do you feel safe at home: Yes Do you feel safe in your relationship?: Yes Exam Const General: cooperative and comfortable Extrem Other: Patient with mild swelling and redness to the plantar aspect of his foot, neurovascularly intact without crepitus No lymphangitis Course Vital Signs Vital signs: Vital Signs Temperature 36.6 C 10/16/22 13:43 Pulse 85 10/16/22 13:43 Respiratory Rate 18 10/16/22 13:43 Blood Pressure 121/70 10/16/22 13:43 Pulse Oximetry 94 10/16/22 13:43 Temperature 36.6 C 10/16/22 13:43 Temperature Source Tympanic 10/16/22 13:43 Pulse 81 10/16/22 15:22 Respiratory Rate 18 10/16/22 15:22 Blood Pressure 131/57 L 10/16/22 15:22 Blood Pressure Position Sitting 10/16/22 13:43 Pulse Oximetry 95 10/16/22 15:22 Oxygen Delivery Method Room Air 10/16/22 13:43 Oxygen Flow Rate 0 10/16/22 13:43 Pain Level 6 10/16/22 13:43 PAWSS Have you Been Recently Intoxicated or Drunk Within the Last 30 days?: No Have you Ever Experienced Previous Episodes of Alcohol Withdrawal?: No Have you ever Experienced Withdrawal Seizures?: No Have you ever Experienced Delirium Tremens(DT)s?: No Have you ever undergone Alcohol Rehabilitation Treatment (i.e, inpt ot outpatient treatment programs)?: No Have you ever Experienced Blackouts?: No Have you ever Combined Alcohol with other Downers within the last 90 days?: No Have you ever Combined Alcohol with any other Substance of Abuse during the last 90 days?: No Positive Blood Alcohol level on Presentation? [PCS.BAL]: No Evidence of Increased Autonomic Activity (i.e. HR>120, tremor, sweating, agitation, nausea)?: No Result: 0
== END 2022-10-16 15:28 | disposition home or self-care (01) ==
PROVIDERS: Emergency Provider Physician Assistant; PCP Nurse Practitioner Family
DX: S99.921A Unspecified injury of right foot, initial encounter (principal); L03.115 Cellulitis of right lower limb; J44.9 Chronic obstructive pulmonary disease, unspecified; Z79.82 Long term (current) use of aspirin; W22.8XXA Striking against or struck by other objects, initial encounter
CPT/HCPCS: 99283; 73630; 99284

== ENCOUNTER 2022-10-21 01:08 | Outpatient (CLI) | payer MEDICAID, SELFPAY ==
--- NOTE | 2022-10-21 06:30 | DI.US_ITS ---
APPROVED REPORT EXAM: Comprehensive 2D, Doppler, and color-flow Echocardiogram Patient Location: Out-Patient Accounts Payable Payroll Coordinator: Kamla Lacey RDCS (AE) Indications: Pre operative exam, s/p CABG, Coronary artery calcifications, h/o stent, SOB Other Information Study Quality: Adequate Conclusion Normal left ventricular wall thickness and chamber size. Ejection fraction is 58%. Wall motion is n ormal Normal right ventricular size and systolic function Both atria are normal in size There is no structural or hemodynamically significant valvular disease Estimated right ventricular systolic pressure is 28 mmHg Wall motion Left Ventricle The left ventricle is normal size. The left ventricular systolic function is normal. The left ventric ular ejection fraction is within the normal range. There is normal left ventricular wall thickness. T here is normal LV segmental wall motion. There is no ventricular septal defect visualized. LVEF is 58 %. Right Ventricle The right ventricle is normal size. The right ventricular systolic function is normal. The RVSP is 27 .8 mmHg. Atria The left atrium size is normal. The right atrium size is normal. The interatrial septum is intact wit h no evidence for an atrial septal defect. Aortic Valve The aortic valve is normal in structure. Aortic valve is trileaflet. There is no aortic valvular sten osis. Trace aortic regurgitation. Mitral Valve The mitral valve is normal in structure. No evidence of mitral valve stenosis. Trace to mild mitral regurgitation. Tricuspid Valve The tricuspid valve is normal in structure. There is no tricuspid valve stenosis. Trace tricuspid reg urgitation. Pulmonic Valve The pulmonary valve is normal in structure. There is no pulmonic valvular stenosis. Trace pulmonic re gurgitation. Great Vessels The aortic root is normal in size. The ascending aorta is normal in size. Aortic arch is not well vis ualized. The IVC collapses <50% with inspiration. Pericardium There is no pericardial effusion. 2D Dimensions IVSD d PLAX 0.99 cm M: 0.6-1.2 LV Vol A2C d MOD 136.9 mL LVPW d PLAX 0.96 cm M: 0.6 - 1.2 LV Vol A4C d MOD 134.0 mL LVID d PLAX 4.78 cm M: 4.2 - 5.8 LA vol/ BSA A2C s A-L 29.5 mL/m2 LVDs 3.25 cm M: 2.5 - 4.0 LA vol/ BSA A4C s A-L 27.2 mL/m2 Ao Root d 3.00 cm M: 3.1 - 3.7 LA Vol/ BSA Biplane s A-L 28.4 mL/m2 RA Area A4C 16.21 cm2 LA Area A4C s MOD 20.48 cm2 RA Vol/ BSA A4C s A-L 21.0 mL/m2 LA Area A2C s MOD 21.38 cm2 Ao Asc Diam d 3.18 cm M: 2.6 - 3.4 LV EF A4C MOD 57.4 % LV EF Teichholz 58.9 % LV EF A2C MOD 58.7 % LVEF (Dobson's) 58.73 % M: 52 - 72 LV EF Biplane MOD 58.7 % LV Volume 100.72 mL M: 62 - 150 SV 82.36 mL LV Volume Index 43.98 mL/m2 M: 34 - 74 SV Index 35.95 mL/m2 LV Vol Biplane MOD 140.2 mL FS 31.15 % M-Mode TAPSE 2.45 cm (M/F) >1.7 LV Diastology MV E' medial 0.100 (>0.07 m/s) E/A Ratio 1.1 LV E/e MED 9.05 (<14) MV E Vmax 0.90 (0.4-1.3 m/s) MV E' lateral 0.087 (>0.1 m/s) MV A Vmax 0.80 (0.4-1.3 m/s) LV E/e LAT 10.35 (<14) MV E/A Ratio 1.13 MV E/E' medial 9.07 MV E/E' lateral 10.39 Aortic Valve LVOT Area 3.74 cm2 AoV Area Vmax 2.72 cm2 LVOT Vmax 1.09 m/s AoV Area/ BSA (Vmax) 1.19 cm2/m2 LVOT Mean Tex. 0.70 m/s PEPE Mean Tex. 2.54 cm2 LVOT Peak Grad 4.8 mmHg PEPE Mean Tex. Index 1.11 cm2/m2 LVOT Mean Grad 2.3 mmHg LVOT VTI 0.249 m LVOT Diam s 2.15 cm AoV Vmax 1.50 m/s Velocity Ratio 0.73 AoV Mean Tex. 1.03 m/s AoV Peak Grad 9.1 mmHg LVOT SV 93.10 mL AoV Mean Grad 4.8 mmHg AoV VTI 0.297 m AoV Area VTI 3.13 cm2 AoV Area/ BSA (VTI) 1.37 cm/m2 Mitral Valve MV DT 203 (160-240 msec) MV PHT 59 msec MV Area PHT 3.74 cm2 MV VTI 0.382 m MV Area VTI 2.44 (4.0-6.0 cm2) Pulmonary Valve PV Vmax 1.06 (0.5-1.5 m/s) RVOT Peak Gr. 1.82 mmHg PV Peak Grad 4.5 mmHg RVOT Mean Gr. 1.05 mmHg PV Mean Grad 2.5 mmHg RVOT VTI 0.156 m PV VTI 0.198 m RVOT Vmax 0.68 m/s Tricuspid Valve TR Peak Grad 19.7 mmHg TR Vmax 2.22 m/s RA Pressure 8.00 mmHg RVSP (TR) 27.8 mmHg
== END 2022-10-21 01:28 ==
LOC: DI 01:08
PROVIDERS: PCP Nurse Practitioner Family; Visit Provider Surgery
DX: E66.9 Obesity, unspecified (principal); F17.200 Nicotine dependence, unspecified, uncomplicated; I25.10 Atherosclerotic heart disease of native coronary artery without angina pectoris; K21.9 Gastro-esophageal reflux disease without esophagitis; R06.02 Shortness of breath; R13.10 Dysphagia, unspecified; R49.9 Unspecified voice and resonance disorder; Z86.73 Personal history of transient ischemic attack (TIA), and cerebral infarction without residual deficits; Z95.1 Presence of aortocoronary bypass graft; Z95.5 Presence of coronary angioplasty implant and graft
CPT/HCPCS: 93306

== ENCOUNTER 2022-10-28 00:45 | Outpatient (CLI) | payer MEDICAID, SELFPAY ==
--- NOTE | 2022-10-28 08:00 | DI.CT_ITS ---
Exam(s) CT NECK W EXAM: CT NECK W CLINICAL HISTORY: changes voice/diff swallowing/hx smoking/cocaine,R49.9,F17.200. TECHNIQUE: Imaging Protocol: Axial computed tomography images with coronal and sagittal reformatted images were created and reviewed CONTRAST MATERIAL: Intravenous: Omnipaque 350 Contrast volume:100 ml contrast COMPARISON: CT CT HEAD CERVICAL SPINE WO from 07/08/2022 FINDINGS: Exam is limited by patient motion. There is mo motion artifact at the level of the larynx. No mass is identified. No evidence of adenopathy. No soft tissue swelling. Degenerative changes no ricardo in the cervical spine. Thyroid, submandibular and parotid glands are unremarkable. Minimal plaq ue at the common carotid bulbs. No significant stenosis. Sternal wires noted. Lungs appear clear. Visualized portions of brain and orbits unremarkable. IMPRESSION: Exam somewhat limited by motion. No significant abnormality identified. RADIATION DOSE DELIVERED: 697.12mGy.cm Total DLP DATA REPOSITORY: All CT scans at this facility are submitted to the National Radiology Data Registry (NRDR) Dose Index Registry (DIR) with the [employer] (ACR). RADIATION OPTIMIZATION: All CT scans at this facility use at least one of these dose optimization te chniques: automated exposure control; mA and/or kV adjustment per patient size (includes targeted exa ms where dose is matched to clinical indication); or iterative reconstruction.
[2022-10-28] MEDS: Omnipaque 350 MG/ML 100 ML BTL IJ (14:12)
[2022-10-28] MEDS: Normal Saline - Diluent 50 ML VIAL IJ (14:12)
== END 2022-10-28 01:05 ==
LOC: DI 00:45
PROVIDERS: PCP Nurse Practitioner Family; Visit Provider Surgery
DX: F14.11 Cocaine abuse, in remission (principal); F17.200 Nicotine dependence, unspecified, uncomplicated; K21.9 Gastro-esophageal reflux disease without esophagitis; R13.10 Dysphagia, unspecified; R49.9 Unspecified voice and resonance disorder
CPT/HCPCS: 70491; J3490

== ENCOUNTER 2022-10-31 03:15 | Outpatient (CLI) | payer MEDICAID, SELFPAY ==
[2022-10-31] MEDS: Albuterol HFA 18 GM 200 PUFF INH IH (11:05)
[2022-10-31] MEDS: Inhaler, Assist Device 1 EACH MC (11:05)
--- NOTE | 2022-10-31 15:11 | W.PFT ---
Date of service: 10/31/22 Time of Service: 10:07 Pulmonary Function Test Result Requesting Provider Cuca Zamudio Indications: COPD Interpretation Spirometry: There is no airflow limitation. There is no bronchodilator response. The FVC is low. Lung Volumes: Normal lung volumes Diffusion Capacity: Normal diffusion Airway Pressure: Normal airways resistance Impression Normal pulmonary function testing. The low FVC is likely pseudo-restriction from an elevated BMI. Clinical Correlation therefore is recommended.
== END 2022-10-31 03:16 | disposition home or self-care (01) ==
LOC: RT 03:15
PROVIDERS: PCP Nurse Practitioner Family; Visit Provider Surgery
DX: F14.11 Cocaine abuse, in remission (principal)
CPT/HCPCS: 94060; 94726; 94729

== ENCOUNTER 2023-05-01 09:26 | Outpatient (CLI) | payer MEDICAID, SELFPAY ==
--- NOTE | 2023-05-01 09:15 | DI.RAD_ITS ---
Exam(s) XR KNEE LT 3V AP,LAT,HELIO EXAM: XR KNEE LT 3V AP,LAT,HELIO CLINICAL HISTORY: L knee pain. TECHNIQUE: 2D digital imaging was performed of the left knee. Three images were obtained. AP, late ral and PA tunnel views were obtained. COMPARISON: No exams were available for comparison FINDINGS: BONES: No acute fracture is present. No bony destructive lesion is seen. JOINTS: There is moderately severe narrowing of the medial femoral tibial joint. There are osteophyt es in all 3 joint compartments. There is a joint effusion. No loose body. SOFT TISSUE: Vascular clips are seen in the soft tissues. IMPRESSION: Osteoarthritis of the left knee. DATA REPOSITORY: RADIATION DOSE DELIVERED:
--- NOTE | 2023-05-01 09:15 | DI.RAD_ITS ---
Exam(s) XR HIP LT COMPLETE AP PELVIS EXAM: XR HIP LT COMPLETE AP PELVIS CLINICAL HISTORY: L hip pain. TECHNIQUE: 2D digital imaging was performed of the left hip. Two views were obtained. AP pelvis an d lateral left hip views were obtained. COMPARISON: No exams were available for comparison FINDINGS: BONES: No acute fracture is present. No bony destructive lesion is seen. JOINTS: No dislocation present. SOFT TISSUE: Normal. IMPRESSION: Unremarkable radiographs of the left hip. Unremarkable radiographs of the pelvis DATA REPOSITORY: RADIATION DOSE DELIVERED:
== END 2023-05-01 09:27 | disposition home or self-care (01) ==
LOC: DIORS 09:26
PROVIDERS: PCP Nurse Practitioner Family; Referring Provider Nurse Practitioner Family; Visit Provider Physician Assistant
DX: M17.12 Unilateral primary osteoarthritis, left knee (principal)
CPT/HCPCS: 73562; 73502

== ENCOUNTER 2023-07-31 14:06 | Outpatient (CLI) | payer MEDICAID, SELFPAY ==
--- NOTE | 2023-07-31 13:00 | DI.RAD_ITS ---
Exam(s) XR KNEE LT 1V XR STANDING ALIGNMENT EXAM: XR STANDING ALIGNMENT CLINICAL HISTORY: OA LEFT KNEE. TECHNIQUE: 2D digital imaging was performed. Standing AP views were performed from the pelvis throu gh the ankles. Lateral view of the left knee was performed with template ball COMPARISON: CR XR KNEE LT 1V from 07/31/2023 FINDINGS: BONES: No acute fracture is present. No bony destructive lesion is seen. Leg length discrepancy: The right femoral head projects approximately 5 millimeters superior to the left. JOINTS: Knees: Severe narrowing of the medial femoral tibial joint spaces of both knees with periarti cular spurring and sclerosis, left greater than right. Posterior loose body seen on lateral view of left knee. Small moderate-sized joint effusion. The ankle joints are unremarkable. The hip joints are unremarkable. SOFT TISSUE: Vascular clips noted medial left knee IMPRESSION: Severe degenerative changes of both knees, left greater than right. Mild overall leg length discrepancy. DATA REPOSITORY: RADIATION DOSE DELIVERED:
[2023-07-31 14:52] LABS: HCT 48.1 % (40.0-50.0); HGB 16.7 g/dL (13.5-17.5); MCH 33.3 pg (27.0-33.0); MCHC 34.7 % (32.0-36.0); MCV 96 fL (80-95); MPV 9.5 fL (8.0-11.0); Platelet Count 307 10^3/uL (130-400); RBC 5.02 10^6/uL (4.36-5.78); RDW 13.2 % (11.8-14.1); RDW-SD 46.3 fL; WBC 12.66 10^3/uL (4.4-10.8)
[2023-07-31 15:36] LABS: BUN 10 mg/dL (7-18); CREATININE 0.9 mg/dL (0.70-1.30); Calcium 9.6 mg/dL (8.5-10.1); Chloride 98 mmol/L (98-107); Estimated GFR 96.57 (mL/min/1.73m2); Glucose 146 mg/dL (74-106); Potassium 3.4 mmol/L (3.5-5.1); Sodium 131 mmol/L (136-145)
== END 2023-07-31 14:07 | disposition home or self-care (01) ==
LOC: DIORS 14:07
PROVIDERS: Student in an Organized Health Care Education/Training Program; PCP Nurse Practitioner Family; Visit Provider Physician Assistant
DX: M17.12 Unilateral primary osteoarthritis, left knee (principal); Z01.818 Encounter for other preprocedural examination
CPT/HCPCS: 36415; 80048; 85027; 73560; 77073

== ENCOUNTER 2023-10-09 03:18 | Outpatient (CLI) | payer MEDICAID, SELFPAY ==
[2023-10-09 11:01] LABS: HCT 49.1 % (40.0-50.0); HGB 16.7 g/dL (13.5-17.5); MCH 32.7 pg (27.0-33.0); MCV 96 fL (80-95); MPV 9.2 fL (8.0-11.0); Platelet Count 272 10^3/uL (130-400); RDW 13.3 % (11.8-14.1); RDW-SD 47.5 fL; WBC 8.47 10^3/uL (4.4-10.8)
[2023-10-09 11:25] LABS: Anion Gap 9.7 mmol/L (3-11); BUN 6 mg/dL (7-18); CO2 25.3 mmol/L (21.0-32.0); Calcium 9.1 mg/dL (8.5-10.1); Chloride 103 mmol/L (98-107); Glucose 267 mg/dL (74-106); Sodium 138 mmol/L (136-145)
== END 2023-10-09 03:19 | disposition home or self-care (01) ==
LOC: LBO 03:18
PROVIDERS: PCP Nurse Practitioner Family; Visit Provider Student in an Organized Health Care Education/Training Program
DX: M25.562 Pain in left knee (principal); M17.12 Unilateral primary osteoarthritis, left knee; Z01.818 Encounter for other preprocedural examination; Z01.812 Encounter for preprocedural laboratory examination
CPT/HCPCS: 36415; 80048; 85027

== ENCOUNTER 2023-10-18 06:09 | Day surgery (SDC) | payer MEDICAID, SELFPAY ==
--- NOTE | 2023-10-17 19:06 | W.ANESPRE ---
General Info Date of Service Date Performed: 10/18/23 Height: 5 ft 10 in Weight: 108.862 kg Body Mass Index (BMI): 34.4 Surgical Procedure: Operation Date: 10/18/23 07:40 Proposed Procedure Side Surgeon p Knee Total Arthroplasty, Cementless CR Left Arnoldo Huff MD Meds Allergies and Home Medications Allergies Allergy/AdvReac Type Severity Reaction Status Date / Time No Known Allergies Allergy Verified 10/18/23 06:17 Home Medication Medication Instructions Recorded albuterol sulfate 90 mcg/actuation 2 puff inhalation Q6H PRN 10/13/22 aerosol inhaler rosuvastatin 10 mg tablet 10 mg PO DAILY 10/13/22 aspirin 81 mg tablet,delayed 81 mg PO DAILY 10/14/22 release methocarbamol 750 mg tablet 750 mg PO QHS #30 tabs 07/27/23 oxycodone 10 mg tablet 10 mg PO BID PRN pain #28 tabs 08/07/23 albuterol sulfate 90 mcg/actuation 2 puff inhalation Q6H PRN 09/12/23 aerosol inhaler (Ventolin HFA) bisacodyl 5 mg tablet,delayed 5 mg PO ONCE 09/12/23 release methocarbamol 750 mg tablet 750 mg PO QHS 09/12/23 ketoconazole 2 % topical cream 1 applic topical DAILY 3 months 10/10/23 #60 grams metformin 500 mg tablet 500 mg PO DAILY Diabetes 10/16/23 Current Visit Medications: Current Medications Generic Name Dose Route Start Last Admin Trade Name Freq PRN Reason Stop Dose Admin Acetaminophen 1,000 mg 10/18/23 06:00 Acetaminophen 500 Mg Tab PO 11/17/23 05:59 PREOP ANA Celecoxib 400 mg 10/18/23 06:00 Celecoxib 200 Mg Cap PO 11/17/23 05:59 PREOP ANA Gabapentin 300 mg 10/18/23 06:00 Gabapentin 300 Mg Cap PO 11/17/23 05:59 PREOP ANA Tranexamic Acid 1,000 mg/ 60 mls @ 360 mls/hr 10/18/23 06:00 Sodium Chloride IVPB 11/17/23 05:59 PREOP ANA Ringer's Solution 1,000 mls @ 80 mls/hr 10/18/23 06:00 IV 11/16/23 23:59 INFUSION ANA Cefazolin Sodium/Dextrose 2 gm in 50 mls @ 100 mls/hr 10/18/23 06:00 Ancef Duplex IVPB 11/16/23 23:59 PREOP ANA IV Miscellaneous Supplies 1 each 10/18/23 06:00 Iv Access IV 11/16/23 23:59 DIRECTED ANA Sodium Chloride 0 ml 10/18/23 06:00 Normal Saline Flush 10 Ml Syr IV 11/16/23 23:59 PRN PRN Sodium Chloride 0 ml 10/18/23 06:00 Normal Saline 10 Ml Vial IJ 11/16/23 23:59 DIRECTED PRN Sterile Water 0 ml 10/18/23 06:00 Water,Injection,Sterile 10 Ml Vial IJ 11/16/23 23:59 DIRECTED PRN PFSH Active Problems Active Problems: Problem Status Onset Code Venous insufficiency I87.2 Onychomycosis B35.1 Tinea pedis B35.3 Diabetes mellitus E11.9 Primary osteoarthritis of left knee M17.12 Dyspnea R06.00 Drug induced constipation K59.03 Chronic GERD K21.9 Continuous cannabis use F12.90 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, in remission F10.11 Change in voice R49.9 Coronary artery calcification seen on CAT scan I25.10 Chronic maxillary sinusitis J32.0 Dysphagia R13.10 Breathing problem R06.9 S/P CABG (coronary artery bypass graft) Z95.1 Hx of heart artery stent Z95.5 Umbilical hernia K42.9 Heart disease I51.9 History of TIA (transient ischemic attack) Z86.73 Anxiety and depression F41.9, F32.A GERD (gastroesophageal reflux disease) K21.9 Colonic polyp K63.5 Constipation, chronic K59.09 Exertional shortness of breath R06.02 Smoker F17.200 Obesity E66.9 Left rib fracture S22.32XA Medical History Medical History (Updated 10/16/23 @ 13:42 by Madhu Butt) Transient ischemic attack Hernia Alcohol abuse with withdrawal Opiate withdrawal Constipation Screening for colon cancer Tobacco use Hx of fracture of pelvis Substance abuse Alcohol abuse, continuous drinking behavior Arthritis Cocaine abuse Per pt. states has not done it in 20 years Marijuana use Dysphasia Opioid abuse Alcohol abuse Closed head injury Scalp laceration Fall Delirium Agitation Alcohol withdrawal Surgical History Surgical History History of appendectomy Hx of coronary artery bypass graft Status post cardiac catheterization Tobacco Smoking/Tobacco Use Status: Current every day Tobacco Type: cigarettes Alcohol Alcohol Intake: current Alcohol intake frequency: a few times a month Alcohol type: beer and hard liquor Substance Use Substance use: Rarely Substance use type: marijuana Details: methadone Vital Signs and Lab Results Vital Signs Most Recent Vital Signs in EMR: Temp Pulse Resp BP Pulse Ox 36.3 C L 98 H 16 132/84 94 10/18/23 06:22 10/18/23 06:22 10/18/23 06:22 10/18/23 06:22 10/18/23 06:22 Lab Results Blood Type / Crossmatch: No Data to Display Complete Blood Count: White Blood Count 8.47 10^3/uL (4.4-10.8) 10/09/23 10:54 Red Blood Count 5.10 10^6/uL (4.36-5.78) 10/09/23 10:54 Hemoglobin 16.7 g/dL (13.5-17.5) 10/09/23 10:54 Hematocrit 49.1 % (40.0-50.0) 10/09/23 10:54 Platelet Count 272 10^3/uL (130-400) 10/09/23 10:54 Complete Metabolic Panel: Sodium 138 mmol/L (136-145) 10/09/23 10:54 Potassium 4.0 mmol/L (3.5-5.1) 10/09/23 10:54 Chloride 103 mmol/L (98-107) 10/09/23 10:54 Carbon Dioxide 25.3 mmol/L (21.0-32.0) 10/09/23 10:54 BUN 6 mg/dL (7-18) L 10/09/23 10:54 Creatinine 1.0 mg/dL (0.70-1.30) 10/09/23 10:54 Est GFR (CKD-EPI 2020) 85.10 (mL/min/1.73m2) 10/09/23 10:54 Calcium 9.1 mg/dL (8.5-10.1) 10/09/23 10:54 Glucose 267 mg/dL (74-106) H 10/09/23 10:54 Liver Function Panel: No Data to Display Coagulation Panel: No Data to Display Cardiac Panel: No Data to Display Arterial Blood Gas: No Data to Display Venous Blood Gas: No Data to Display Pancreas Panel: No Data to Display Thyroid Panel: No Data to Display Infectious Disease: No Data to Display Blood Cultures: No Data to Display Toxicology Panel: No Data to Display Imaging and Studies Imaging and Studies Study information below may be from another EMR and interpreted by another provider. Please see original notes in EMR for more complete details. EKG Summary: 07/01: sinus. prob LAE. Echocardiogram Summary: 11/03: LVEF 58%, no sig valve issues, RVSP 28 mmhg. Pulmonary Function Summary: 11/03: normal. Anesthesia Assessment and Plan Anesthesia History Personal History: No History of Anesthesia Complications Family History: No Family History of Anesthesia Complications Exercise Tolerance Exercise Tolerance: Metabolic Equivalents>4 Cardiac & Pulmonary Exam Cardiac Exam: Normal S1/S2 Heart Sounds Pulmonary Exam: Clear Bilateral Breath Sounds Implantable Cardiac Device Does patient have a Pacemaker or an ICD?: No Airway Exam Known Difficult Airway: No Mallampati Class: 4 Mouth Opening: Narrow (< 3cm) Thyromental Distance: Greater than 3 cm Neck Range of Motion: Full ROM Neck Circumference: Thick Teeth Condition: Edentulous ASA Classification ASA Score: ASA 3 Emergency Case?: No NPO Status NPO Status: NPO Clears >2 hours, Solids >8 hours Anesthesia Plan Resuscitation Status: Full Code Anesthesia Technique: Spinal Anesthesia Airway Planned: Natural Airway Pain Management: Surgeon and patient request nerve block Monitors Used: Standard Monitors Preoperative Comments:: 63 yo male for TKA. Sig PMHx: CABG 2010/stents 2012, carotid stenosis/TIA (neck CT no sig abnormality), RAD (albuterol), DM (metformin, last A1c 6.3 10/03), GERD (well controlled, as needed PPI use), smoker, former etoh/substance abuse (in remission, hasn't used in a while. brief trail on methadone many years ago but only for a few months), anxiety/depression.
[2023-10-18] VITALS (11 sets, daily range): BP systolic 110–140; BP diastolic 53–91; PULSE 88–99; RESP 16–19; TEMP 36.3–37.1; O2SAT 94–97; BMI 34.4
[2023-10-18] MEDS: Celecoxib 200 MG CAP 400 MG PO (06:49)
[2023-10-18] MEDS: Acetaminophen 500 MG TAB 1000 MG PO (06:49)
[2023-10-18] MEDS: Gabapentin 300 MG CAP PO (06:50)
[2023-10-18] MEDS: Lactated Ringers 1,000 ML 80 ML IV (06:50)
--- NOTE | 2023-10-18 07:15 | W.PM.DSUDISC ---
Date of service: 10/18/23 Time of Service: 07:15 Discharge Plan Disposition Patient Disposition: Home Condition: Good Discharge Details Reason For Visit: L TKR Attending Provider: Arnoldo Huff Primary Care Provider: Alison Suero Home Meds and New Rx's Prescriptions: New acetaminophen 500 mg tablet 1,000 mg PO TID Qty: 90 3RF aspirin 81 mg tablet,delayed release (DR/EC) 81 mg PO BID Qty: 60 0RF celecoxib 200 mg capsule 200 mg PO BID Qty: 60 0RF gabapentin 300 mg capsule 300 mg PO QHS Qty: 14 0RF pantoprazole 40 mg tablet,delayed release (DR/EC) 40 mg PO DAILY Qty: 30 0RF oxycodone 10 mg tablet 10 mg PO Q4H PRN (Reason: pain) Qty: 20 0RF Continued ketoconazole 2 % cream 1 applic topical DAILY 90 Days Qty: 60 3RF Rx Instructions: Apply to toenails once daily albuterol sulfate 90 mcg/actuation HFA aerosol inhaler 2 puff inhalation Q6H PRN rosuvastatin 10 mg tablet 10 mg PO DAILY methocarbamol 750 mg tablet 750 mg PO QHS Qty: 30 0RF Rx Instructions: take 1 tablet by mouth at bedtime methocarbamol 750 mg tablet 750 mg PO QHS bisacodyl 5 mg tablet,delayed release (DR/EC) 5 mg PO ONCE albuterol sulfate [Ventolin HFA] 90 mcg/actuation HFA aerosol inhaler 2 puff inhalation Q6H PRN metformin 500 mg tablet 500 mg PO DAILY Discontinued aspirin 81 mg tablet,delayed release (DR/EC) 81 mg PO DAILY oxycodone 10 mg tablet 10 mg PO BID MDD 20mg PRN (Reason: pain) Qty: 28 0RF Discharge Instructions Additional Instructions: Total Knee Discharge Instructions Activity: The most important activity is to walk and to work on gentle motion (both flexion and extension). You should try to take short walks a few times a day. It is important that when resting you work on keeping the knee straight. Avoid putting a pillow behind the knee as this will encourage flexion. Work on range of motion exercises as provided by Physical Therapy. - Start outpatient physical therapy within 2 weeks. - You should wear the DEBORA hose on both legs for 2 weeks. You may remove these at night. You may also use any compression sock in place of the DEBORA hose. - Utilize [employer] to review exercises, see videos on exercises and obtain basic information pertaining to your surgery and your recovery. Dressing: Remove the Pop wrap by 2 days after your surgery and put on the DEBORA stocking given to you from the hospital. Keep the surgical dressing (underneath the POP wrap) in place for at least one week. After the first week it may be removed and replaced with light gauze and tape or nothing. The wound and dressing may get wet after 3 days but avoid soaking the dressing or otherwise it will need to be changed. Many people prefer covering the dressing with cling wrap (saran wrap) to minimize it from getting soaked. If it gets wet, just pat dry. If it starts to peel off then it will need to be changed. Medications: - You should take Tylenol and anti-inflammatory Celebrex as your primary pain control medications. If the Celebrex is too expensive or not covered, please call the office for another alternative (Advil/Ibuprofen or Naproxen/Aleve) - You have been prescribed a stronger pain medication Oxycodone for breakthrough pain, take as needed as prescribed. - You have also been prescribed a stomach acid reduction agent Pantoprozole to help reduce stomach acid and reflux. - You have been prescribed Gabapentin to take at night for restlessness and nerve pain. - You will be taking Aspirin 81mg twice a day for DVT prevention unless instructed otherwise. - If you have constipation you should take Colace or Miralax (both [id number]). It takes most people 3-4 days to have a bowel movement. Follow-up: 2 weeks November 02 @ 11:00 am. If you have any acute concerns or questions, please do not hesitate to contact the office at [phone]. You may contact Dr. Huff with any questions after hours through the hospital at [phone] or on his cell phone at [phone]. Stand Alone Forms: Anesthesia Discharge InstRadha Barros.Nerve Block Instructions, Rosales Jasmine (DSU) Referrals: Arnoldo Huff MD [ [facility] STAFF PHYSICIAN] - Equipment/Supplies: Walker Activity:: Activity as Tolerated Shower/Bathe:: 72 hours Diet:: As Tolerated Discharge Orders Discharge Orders: Discharge Order (Routine); Ordered 10/18/23 Ordered By: Eladio Doll DS: Diagnosis Discharge Diagnosis (1) Primary osteoarthritis of left knee: Status: Chronic
--- NOTE | 2023-10-18 07:25 | W.ANESNERVE ---
Nerve Block Single Injection Procedure Date and Time Date Performed: 10/18/23 Procedure Start: 07:15 Location Where Procedure Performed Procedure Location: Day Surgery Unit Reason Performed: Postoperative Analgesia Requesting Provider: Arnoldo Huff Timeout Performed Timeout Performed: Yes Monitoring Used ECG, Blood Pressure and SpO2 Sterility Sterility: Hand Hygiene, Surgical Cap, Surgical Mask, Sterile Gloves and Chlorhexidine Sedation Given During Procedure Sedation Given (Indicate Dose Given): Versed IV Dose:: 2 mg Patient Mental Status Patient Mental Status: Sedate with meaningful communication Nerve Block 1st Nerve Block: Laterality: Left Block Type: Adductor Canal Ultrasound Image Saved?: Yes Needle / Catheter Used: 100mm SonoPlex II Local Anesthetic Bolus (Indicate Dose Given): Injected in 3-5ml increments after negative blood aspiration and Bupivacaine 0.25% Dose:: 10 mL mL Additives (Indicate Dose Given): None Ultrasound: Sterile probe cover and gel used Nerve Stimulator: Supplement to Ultrasound use and No twitch or parasthesia noted < 0.5 mA Paresthesia: None Procedure Tolerated: No Complications Procedure Outcome: Successful Performed By: Shaji Sebastian 2nd Nerve Block: Laterality: Left Block Type: Other (ant femoral cutaneous. ) Ultrasound Image Saved?: Yes Needle / Catheter Used: 100mm SonoPlex II Local Anesthetic Bolus (Indicate Dose Given): Injected in 3-5ml increments after negative blood aspiration and Bupivacaine 0.25% Dose:: 5 mL Additives (Indicate Dose Given): None Ultrasound: Sterile probe cover and gel used Nerve Stimulator: Supplement to Ultrasound use and No twitch or parasthesia noted < 0.5 mA Paresthesia: None Procedure Tolerated: No Complications Procedure Outcome: Successful Performed By: Shaji Sebastian
[2023-10-18] MEDS: ceFAZolin 2 GM/50 ML BAG IVPB (07:38)
--- NOTE | 2023-10-18 09:33 | W.PM.OP ---
Date of service: 10/18/23 Time of Service: 07:45 Operative Note Operative Note PRE-OP DIAGNOSIS: Left Knee Osteoarthritis POST-OP DIAGNOSIS: same PROCEDURE: Left Total Knee Replacement SURGEON: Arnoldo Huff INVENTORY CONTROL SPECIALIST: Mariela Doll ANESTHESIA TYPE: Spinal Refer to Anesthesia Record ESTIMATED BLOOD LOSS: 200 PATHOLOGY: none sent TOURNIQUET TIME: 0 COMPLICATIONS: None Patient was transported to: PACU Patient's condition: stable Implants: 1. Depuy Attune Cementless Cruciate Retaining Femoral Component, Size 7 2. Depuy Attune Cementless Fixed Bearing Tibial Component, Size 6 3. Depuy Attune 7x7 CR/FB Poly 4. Depuy Attune Patellar Component, Size 35 Indications: I have seen Dusty in clinic for symptoms of knee arthritis, confirmed with radiographic findings. Dusty has exhausted nonoperative methods and was having significant limitations in daily function and desired better function and less pain. I discussed the technical details of a knee replacement. I explained the risks of the procedure to include, but not limited to, bleeding, infection, pain, stiffness, fracture, damage to nerves and vessels, damage to muscles and tendons, loosening, need for repeat procedure, blood clot and cardiopulmonary demise. Despite these risks, Dusty elected to proceed. Findings: There was significant signs of arthritis throughout the knee. Procedure Description: Dusty was greeted in the preoperative holding area where the correct side was identified and marked. The consent was reviewed with the patient and signed. The history and physical was updated. All questions were answered. Preoperative medications were administered: Acetaminophen 1000mg, Celebrex 400mg, and Gabapentin 300mg. An adductor canal block was then administered by the anesthesia team in the PACU. Dusty was taken back to the operating room. A spinal anesthestic was then administered. The patient was placed into the supine position on the operating room table. A nonsterile tourniquet was placed high onto the leg but only used for cementing. Posts were placed for positioning during the procedure. All bony prominences were well padded. Prophylactic antibiotics in the form of Cefazolin were administered. 1g of Tranxemic Acid was given intravenously within 30 minutes of incision. The left leg was then prepped with Chloraprep and draped in a standard fashion with impervious stockinette. A second prep with Chloraprep was performed prior to application of Iodine impregnated skin protection. A timeout to confirm correct identity, side and site, procedure, allergies, anesthesia, and medical concerns was performed. With the knee in some flexion, a midline incision was made overlying the knee. Full thickness skin flaps were raised once the extensor mechanism was encountered. These were raised medially and laterally. Any bleeding was controlled with electrocautery. Once the extensor mechanism was fully exposed, a medial parapatellar arthrotomy was performed in a flexed position. All bleeding from the arthrotomy and the geniculate arteries was coagulated. A medial subperiosteal peel was performed with electrocautery to the midcoronal plane. Due to the significant varus deformity the entire medial tibial plateau was exposed. The fat pad was removed while keeping the patellar tendon protected. The anterior distal femur synovium was removed for later visualization. The ACL and PCL were resected and the anterior horn of the lateral meniscus was transected. The knee was then flexed with the patella everted. Large osteophytes from the tibia were removed. Large osteophytes from the femur were removed. Using a step drill, and based on preoperative templating, the femoral canal was entered. This was done with a step drill without any difficulty. The intramedullary distal femoral cut guide was inserted, set to a 5 degree valgus cut and 9mm cut thickness. The distal femoral cut guide was then held in position and pinned. With the soft tissues protected, the distal cut was performed. This was passed over a few times to ensure a planar cut. I then turned attention to the tibia. The extramedullary guide was placed onto the leg. The distal aspect was slid medial to adjust for position of center of ankle and stay in line with shaft of the tibia. Approximately 3-5 degrees of posterior slope was kept in the proximal cutting guide. The center of the guide was aligned with the PCL. The stylus was used to assess cut thickness. The medial side, most involved side, was set for a 4mm cut. This was then held in position and pinned into place with 2 additional pins and a cross pin for stability. The medial and lateral collateral ligaments were protected and the cut was performed. With this completed, it was assessed and noted to be of appropriate dimensions. The guide was removed. A spacer block was inserted and the knee was brought into extension. The 6mm spacer block provided full extension, without hyperextension and with stability of both the medial and lateral collateral ligaments was assessed. The pins from the femur and the tibia were then removed. The distal femur was then sized. The anterior stylus was placed onto the lateral ridge of the anterior femur. This indicated a size 7 femur. The external rotation of the guide was adjusted to 3 degrees to match the epicondylar axis, perpendicular to Medardo?s line. The 4-in-1 cutting guide was the placed. The posterior medial femur cut was evaluated and appeared of good thickness. The spacer block was inserted underneath the cutting guide and stability was confirmed in 90 degrees of flexion. An cal wing was used to confirm appropriate position of the anterior cut to avoid notching. This cutting guide was ensured to be flush on the cut surface and then pinned into place with headed pins. While protecting the soft tissues, quad tendon, and collateral ligaments, the anterior and posterior cuts were performed with a saw. The central two pins were removed and the posterior and anterior chamfers were cut next. The notch-cutting guide was placed. This was pinned to lateralize the femoral component as much as possible while keeping it flush on the cut surface. This was then pinned into position. A reciprocating saw was used to make the notch cut. A rasp smoothed the cut surfaces. The medial and lateral menisci were removed. A trial femoral component was then inserted, impacted down to the cut surfaces, and the lug holes were drilled. A provisional trial tibial component was placed and the knee was brought through range of motion. There was noted to be excellent extension and flexion. There was no significant instability. The patella was tracking without thumbs. A size 6mm polyethylene component provided the best range of motion and stability with less than 2mm gapping with medial and lateral stress and full extension without significant hyperextension. The tibial cut surface was fully exposed. The tibia was then sized as a 6. The tibia had been previously marked during trialing to correspond to the center of the tibial component to help with rotation. The trial was aligned to this mariela, approximately rotated to the medial 1/3rd of the tibial tubercle. The trial was pinned into place. The tibia was prepared with a reamer and a keel punch and lug holes. The knee was then brought into extension and the patella was measured as 28mm. Using the patellar clamp and cut guide, this was resected to a flat surface with at least 13mm of thickness remaining. The size 35 patella fit the best. This was oriented and then clamped into position. The lugs were drilled. The trial components were removed. The final components were opened on the back table. The periosteal and capsular tissues, especially posteriorly, around the knee were then systematically injected with a periarticular cocktail consisting of 246mg of Ropivacaine, 0.5mg of Epinephrine, 0.08mg of Clonidine, and 30mg of Ketorolac, diluted to 100cc. On the back table, with the implants opened, the cement was mixed. One batch of high viscosity cement was prepared with vacuum assistance. After the cement was ready a small amount was placed on the cut surface of the patella and the patellar button was clamped into position and held. While the cement was hardening, the cementless knee components were placed. Starting with the tibial component, the tibia was subluxed anteriorly and the lug holes of the component were lined up. The tibia was then impacted with an impactor and mallet until the tibial component was in contact with the tibia. The final polyethylene component was inserted. Then, the femoral component was inserted. The lug holes were aligned and the component was impacted into position. The knee was irrigated with Surgiphor Betadine solution. This was allowed to sit in the knee for 3 minutes and then it was irrigated out with saline. After the cement had finally cured, approximately 15min, the clamp was removed from the patella and the knee was taken through range of motion. The patella was tracking with a no-thumbs technique. The capsule was then reapproximated with a No. 1 Vicryl at multiple locations. The capsule was finally closed with a No. 2 Stratafix, barbed suture. The second dosing of 1g TXA was started. Deep tissues were then reapproximated with 0 Vicryl and 2-0 Vicryl. The skin was closed with a running 3-0 Monocryl in a subcuticular fashion. This was reinforced with skin glue. A Mepilex silver dressing was applied along with a [id number] BRENNEN wrap. A CryoCuff was applied. Dusty was transferred to the hospital bed without difficulty an suffering no apparent complication. Dusty has a good prognosis. Physical therapy will start today and without restrictions, weight-bearing as tolerated. Aspirin 81mg BID will be used for DVT prophylaxis.
--- NOTE | 2023-10-18 10:11 | W.ANESPOSTOP ---
Postoperative Evaluation Date, Time and Location Date Performed: 10/18/23 Time Performed: 10:11 Patient Location: Day Surgery Unit Vital Signs Most Recent Imported Vital Signs: Most Recent Vital Signs Temp Pulse Resp BP Pulse Ox 36.7 C 91 H 17 111/76 97 10/18/23 09:59 10/18/23 09:59 10/18/23 09:59 10/18/23 09:59 10/18/23 09:59 Pain Score Most Recent Pain Score: Most Recent Pain Score Pain Level 0 10/18/23 09:59 Assessment Mental Status: Awake (Alert & Oriented to Patient Baseline) Airway and Respiratory Function: Patent airway with normal (patient baseline) respiratory exam Cardiovascular Function: Hemodynamically Stable Hydration Status: Adequately Hydrated Nausea & Vomiting: No Nausea or Vomiting Pain: Pain is tolerable per patient Peripheral Nerve Block: Regional nerve block not resolved at time of post operative discharge
--- NOTE | 2023-10-18 10:47 | PT.INIE ---
PT Notes Visit Reasons: L TKR Physical Therapy Inpatient Initial Evaluation Date: 10/18/2023 Referring Doctor: RINKU Walls PT Orders: PT CONSULT: S/p Ortho surgery Precautions: WBAT on the left LE with AD. Patient Profile/Admitting Diagnosis: Will is a 64-year-old male with primary unilateral osteoarthritis of the left knee and is status post left total knee arthroplasty on postoperative day 0. PMHX: Medical History Agitation Alcohol abuse Alcohol abuse with withdrawal Alcohol abuse, continuous drinking behavior Alcohol withdrawal Arthritis Closed head injury Cocaine abuse Constipation Delirium Dysphasia Fall Hernia Hx of fracture of pelvis Marijuana use Opiate withdrawal Opioid abuse Scalp laceration Screening for colon cancer Substance abuse Tobacco use Surgical History History of appendectomy Hx of coronary artery bypass graft Status post cardiac catheterization Social History/Home Situation: Lives close to uncle's and aunt's place with 5 steps to enter. Independent with all aspects feels prior to surgery although has had increasing difficulty with mobility ADL poor performance due to arthritis progression. Aunt is a retired nurse. Equipment Owned/DME: Bought a brand new [employer] and [employer] commode Subjective: Complained of 4-5/10 pain in the L knee with supine exercises and mobility performance. Denied headache, chest pain, and lightheadedness throughout session. Objective: General Observation: BRENNEN wraps to left LE. Cryo/Cuff to left knee. TEDS to right leg. Mental Status: Alert and oriented as to person, place, time, and purpose. Able to pay attention, focus, and respond appropriately. Pain: As above Vital Signs: Closely monitored by Nurse Goldberg ROM: Right Lower Extremity: Hip flexion WFL. Hip abduction WFL. Knee flexion WFL. Ankle dorsiflexion WFL. Ankle plantarflexion WFL. Left Lower Extremity: Hip flexion WFL. Hip abduction WFL. Knee flexion 0-890 degrees ACTIVELY. Ankle dorsiflexion WFL. Ankle plantarflexion WFL. Strength: Right Lower Extremity: Hip flexors 5/5. Hip abductors 5/5. Knee flexors 5/5. Knee extensors 5/5. Ankle dorsiflexors 5/5. Ankle plantarflexors 5/5. Left Lower Extremity: Hip flexors 4/5. Hip abductors 4/5. Knee flexors 4-/5. Knee extensors 4-/5. Ankle dorsiflexors 4/5. Ankle plantarflexors 4/5. Bed Mobility/Transfers: Moderate cueing provided for use of B hands as needed for support, movement sequence, AD management, and posture to reduce fall risk and minimize pain report Rolling independent Supine to sit independent Sit to stand contact-guard assist with FWW Stand to sit standby assist with FWW Bed to toilet seat standby assist with FWW Toilet seat to reclining chair standby assist with FWW Gait: Facilitated safe and correct performance of level surface ambulation covering a distance of 150 feet using front wheeled walker with reciprocal step through heel-toe gait pattern requiring standby assist and minimal cueing for movement sequence, AD management, and posture to reduce fall risk and minimize pain report. Stairs: Guided patient with safe and correct negotiation of 6 x 4 inch steps and 4 x 6 inch steps while holding onto bilateral rails with step to gait pattern requiring contact-guard assist and moderate verbal cueing for movement sequence, increased knee flexion on the left during each ascent, and posture to reduce fall risk and minimize pain report. Balance: Static Sitting: Normal Dynamic Sitting: Normal Static Standing: Fair Dynamic Standing: Fair Special Tests: Mobility Limitations Standardized Measure [facility] 6 clicks Basic Mobility Inpatient Short Form: Raw Score: 23 CMS Score: 11% deficit Informed Consent/Education: Patient was instructed in purpose of PT consult. Trained patient with correct performance of exercises below to maximize motor control, joint flexibility, soft tissue extensibility of the L knee musculature: Access Code: [email or web address] URL: [email or web address] Date: 10/18/2022 Prepared by: Hailey James Exercises - Supine Quad Set - 1 x daily - 7 x weekly - 1 sets - 10 reps - 5 hold - Supine Heel Slide - 1 x daily - 7 x weekly - 1 sets - 10 reps - 5 hold - Supine Ankle Pumps - 1 x daily - 7 x weekly - 1 sets - 10 reps - 5 hold - Small Range Straight Leg Raise - 1 x daily - 7 x weekly - 1 sets - 10 reps - 5 hold - Seated March - 1 x daily - 7 x weekly - 1 sets - 10 reps - 5 hold Assessment: Patient requires the use of a front wheeled walker for mobility ADL performance to maximize independence and reduce fall risk at home. Patient presents with clinical signs and symptoms consistent with current/admitting diagnoses that have resulted to mobility limitations, gait instability, generalized weakness, and overall ADL decline as demonstrated by the following impairment level findings: 1. Decreased strength to L knee major muscle groups 2. Impaired standing balance 3. Impaired activity tolerance 4. Limitation of joint range of motion in L knee Impairments are contributing to the following functional limitations: 1. Decline in bed mobility skills 2. Decline in transfer skills 3. Difficulty with ambulation without assistive device 4. Increased completion time for mobility ADL performance 5. Increased risk for falls Patient is assessed as a [id number] moderate complexity based on the following: History: 63-year-old male with past medical history as indicated above Examination: Demonstrable impairment in strength, balance, and mobility level with underlying impairments and functional limitations as exhibited above as well as deficit score of 11% utilizing the [facility] Mobility Inpatient Short Form Presentation: Evolving Decision Makin moderate complexity complexity Goals: N/A. PT evaluation and 1 treatment session only for HEP education and functional mobility training. Plan of Care/Treatment Plan: N/A. PT evaluation and 1 treatment session only for HEP education and functional mobility training. DISCHARGE RECOMMENDATIONS: Home when medically cleared by orthopedic surgeon. Recommend outpatient PT services in order to optimize functional mobility outcomes and facilitate return to independent community ambulation without an assistive device. TREATMENT CODE/TIME: 9716 2 x 20 minutes, for 1 unit, 06904 x 11 minutes for 1 unit (10:47-11:18) Thank you for the opportunity to participate in the care of this patient. Please sign an return this page within 30 days if you agree with the above POC. Thank you! Physician Signature Date [facility] Hailey James PT, DPT, CLT [facility] [place], [place]
[2023-10-18] MEDS: oxyCODONE 5 MG TAB PO (10:59)
== END 2023-10-18 11:55 | disposition home or self-care (01) ==
PROVIDERS: PCP Nurse Practitioner Family; Visit Provider Student in an Organized Health Care Education/Training Program
PROC: (CPT 27447; principal; 2023-10-18 07:30)
DX: M17.12 Unilateral primary osteoarthritis, left knee (principal); F12.90 Cannabis use, unspecified, uncomplicated; F17.210 Nicotine dependence, cigarettes, uncomplicated; E11.9 Type 2 diabetes mellitus without complications; Z79.84 Long term (current) use of oral hypoglycemic drugs; K21.9 Gastro-esophageal reflux disease without esophagitis
CPT/HCPCS: 27447; 76942; 97162; 97530; C1776; J0665; J0690; J1100; J2250; J2371; J2401; J2405; J2704

== ENCOUNTER 2023-11-02 14:43 | Outpatient (CLI) | payer MEDICAID, SELFPAY ==
--- NOTE | 2023-11-02 11:59 | DI.RAD_ITS ---
Exam(s) XR KNEE LT 1V XR STANDING ALIGNMENT EXAM: XR STANDING ALIGNMENT and XR knee LT 1 V CLINICAL HISTORY: 1ST POST OP S/P L TKA. TECHNIQUE: 2D digital imaging was performed. Five images were obtained. COMPARISON: CR XR STANDING ALIGNMENT from 07/31/2023 CR XR KNEE LT 1V from 07/31/2023 FINDINGS: BONES: The hips are well maintained. The patient is now status post left total knee replacement. Th e orthopedic hardware appears in good position. No suspicious lucencies are seen in or around the or thopedic hardware. There is mild persistent soft tissue swelling around the left knee. There is mod erate narrowing of the medial joint compartment of the right knee. Osteophytes are seen both mediall y and laterally. The ankles are well maintained.There is no significant leg length discrepancy. SOFT TISSUE: Normal. IMPRESSION: 1. Left total knee replacement. 2. Moderate arthrosis of the right knee. DATA REPOSITORY: RADIATION DOSE DELIVERED:
== END 2023-11-02 14:44 | disposition home or self-care (01) ==
LOC: DIORS 14:44
PROVIDERS: PCP Nurse Practitioner Family; Visit Provider Student in an Organized Health Care Education/Training Program
DX: Z96.652 Presence of left artificial knee joint (principal); Z47.1 Aftercare following joint replacement surgery
CPT/HCPCS: 73560; 77073

== ENCOUNTER → 2024-01-04 04:31 | Outpatient (CLI) | payer MEDICAID, SELFPAY ==
--- NOTE | 2024-01-04 | DI.CTLCSR_ITS ---
Exam(s) CT CHEST LUNG CANCER SCREEN EXAM: CT CHEST LUNG CANCER SCREEN CLINICAL HISTORY: screening for lung ca,current smoker, f17.210 TECHNIQUE: Imaging Protocol: Axial computed tomography images with coronal and sagittal reformatted images were created and reviewed COMPARISON: CT CT CHEST/ABD/PEL W from 06/29/[address] CHEST LUNG CANCER SCREEN from 10/05/2022 FINDINGS: Tracheobronchial tree: Patent where visualized. Pulmonary parenchyma: The linear air irregular area in the left upper lobe is unchanged in size cindy red to the prior examination. No architectural distortion. No focal consolidating infiltrates are pr esent. Lung Nodules: There is a stable 2 mm nodule in the posterior aspect of the right upper lobe (series 3 , image 171). There is a stable 3 mm nodular area in the upper anterior right breast (series 3, imag e 140). No new pulmonary nodules are seen. Mediastinum and Fransisca: No dominant adenopathy or fluid collection. The esophagus is unremarkable. Thyroid gland: Unremarkable. Lymph nodes: Unremarkable. Pleura: No effusion or pneumothorax. Heart: The heart is not dilated. Coronary artery calcification and/or stents are present. No pericar dial effusion. Aorta: Thoracic aorta non-dilated. Upper abdomen: There is decreased attenuation of the liver suggesting fatty infiltration. Stable re nal cysts are present. Soft Tissues: Gynecomastia is present. Bones: Within normal limits. Sternal wires are in place. IMPRESSION: Stable pulmonary nodules. Lung RADS Cat 2 - Benign Appearance / Behavior: Nodules with a very low likelihood of becoming a clin ically active cancer due to size or lack of growth Lung-RADS 1.0 CATEGORIES: Category 0 - Prior chest CT exam(s) being located for comparison. Category 1 - Annual screening in 12 months. No nodules or definitely benign nodules. Category 2 - Annual screening in 12 months. Benign appearance. Nodules with low likelihood of becomin g active cancer. Category 3 - 6-month follow-up. Probably benign. Short-term follow-up suggested. Nodules with low lik elihood of becoming active cancer. Category 4A - 3-month follow-up and CT/PET if >8 mm in size. Suspicious finding. Findings which requi re additional testing. Category 4B - Findings which require additional testing and tissue sampling. Suspicious finding. Category 4X - Category 3 or 4 nodules with additional features or imaging findings that increases the suspicion of malignancy. Modifier S- Potentially clinically significant finding. (Non lung cancer) RADIATION DOSE DELIVERED: 98.6mGy.cm Total DLP 98.6mGy.cmTotal DLP DATA REPOSITORY: All CT scans at this facility are submitted to the National Radiology Data Registry (NRDR) Dose Index Registry (DIR) with the [employer] ([employer]). RADIATION OPTIMIZATION: All CT scans at this facility use at least one of these dose optimization te chniques: automated exposure control; mA and/or kV adjustment per patient size (includes targeted exa ms where dose is matched to clinical indication); or iterative reconstruction.
== END ==
PROVIDERS: PCP Nurse Practitioner Family; Visit Provider Nurse Practitioner Family
DX: F17.210 Nicotine dependence, cigarettes, uncomplicated (principal); Z12.2 Encounter for screening for malignant neoplasm of respiratory organs; R91.1 Solitary pulmonary nodule
CPT/HCPCS: 71271